=== PATIENT | female | born 1950 | race Caucasian/White ===

== ENCOUNTER 2016-10-01 15:14 | Inpatient (IN) | payer OTHER ==
[~2016-10-01] VITALS: Ht 157.5 cm; Wt 35.2 kg
[~2016-10-01 15:14] MED LIST: DIGO30TA PO; LAMO100T16 PO; LSN5 PO; LSX40 PO; METH10TA4 PO; MIRT45TA PO; OLAN1TAB13 PO; TPRSR/100 PO; VENL1CAP92 PO; WARF-280 PO
[2016-10-01] MEDS ORDERED: SODIUM CHLORIDE 0.9% 1000ML 1,000 ML IV ONE (15:42)
[2016-10-01] MEDS ORDERED: ONDANSETRON INJ 2 MG/ML 2 ML VIAL IV STA (15:42)
--- NOTE | 2016-10-01 15:49 | EMERGENCY ROOM VISIT NOTE ---
History Report prepared by Ruben: Ricardo Kennedy Under the Supervision of: Dr. Adrian Quesada M.D. First contact with patient: 15:35 Chief Complaint: WEAKNESS Stated Complaint: DEHYDRATION History of Present Illness The patient is a 66 year old female who presents to the Emergency Room via EMS with complaints of moderate weakness that began a couple of weeks ago. She is not in any pain. The patient states that her daughter suggested that she come into the ED today do to her persistent weakness. The patient states that she has had a couple falls with some mild injury, but nothing "too serious." She has been keeping up with her fluid intake, but she feels mildly dehydrated. She feels mildly nauseated.The patient denies any chest pain, shortness of breath, vomiting, diarrhea, and urinary symptoms. The patient's blood pressures have been low recently, and they are trying to correct it. The patient received 350 cc's of saline en route. The patient takes Coumadin and Digoxin regularly. She has a recent history of cardiogenic shock. Source of History: patient Onset: a couple of weeks ago Position: other (global) Symptom Intensity: moderate Quality: other (weakness) Timing: constant Associated Symptoms: + nausea, No SOB, No chest pain, No diarrhea, No urinary symptoms, No vomiting Review of Systems See HPI for pertinent positives & negatives. A total of 10 systems reviewed and were otherwise negative. Past Medical & Surgical Medical Problems: (1) Adjustment disorder with depressed mood (2) Anorexia nervosa (3) COPD (chronic obstructive pulmonary disease) (4) Digoxin toxicity (5) H/O H. pylori infection (6) HYPERTENSION NOS (7) Ischemic optic neuropathy of right eye (8) [place] toxicity (9) Mood disorder (10) Nonischemic cardiomyopathy (11) Orthostatic hypotension (12) Orthostatic hypotension (13) PTSD (post-traumatic stress disorder) (14) Sinus tachycardia Surgical Problems: (1) H/O breast implant (2) H/O esophagogastroduodenoscopy (3) H/O unilateral oophorectomy (4) S/P hip replacement Family History Asthma DAUGHTER Cancer FATHER (Prostate) Heart disease BROTHER SISTER Hypertension Kidney disease MOTHER Kidney stones MOTHER Lung disease Social History Smoking Status: Former Smoker Alcohol Use: none Drug Use: none Marital Status: Housing Status: lives alone Occupation Status: retired Current/Historical Medications Scheduled Digoxin (Digitek), 0.125 MG PO QAM Furosemide (Furosemide), 40 MG PO QAM Lamotrigine (Lamictal), 100 MG PO BID Lisinopril (Lisinopril), 5 MG PO QPM Melatonin (Ra Melatonin), 5 MG PO HS Methylphenidate (Ritalin), 10 MG PO DAILY Metoprolol Succinate (Metoprolol Succinate ER), 100 MG PO QAM Mirtazapine (Remeron), 45 MG PO HS Venlafaxine Hcl (Effexor Xr), 1 CAP PO DAILY Warfarin Sod (Jantoven), 2.5 MG PO QMON Warfarin Sodium (Warfarin Sodium), 1.25 MG PO 6XWK Scheduled PRN Docusate Sodium (Docusate Sodium), 100 MG PO BID PRN for Constipation Allergies Coded Allergies: Ciprofloxacin (Verified Allergy, Mild, RASH, 09/19/16) Penicillins (Verified Allergy, Unknown, RASH, 09/19/16) Prednisone (Verified Allergy, Unknown, UNSURE, 09/19/16) HAD FILLED O/P IN 2015 Statins (Verified Allergy, Unknown, ., 09/19/16) Codeine (Verified Adverse Reaction, Mild, 'OUT OF SORTS', 09/19/16) Physical Exam Vital Signs Date Time Temp Pulse Resp B/P Pulse Ox O2 Delivery O2 Flow Rate FiO2 10/01/16 17:36 82 16 76/46 10/01/16 17:26 82 16 75/62 97 10/01/16 15:33 95 Room Air 10/01/16 15:33 36.1 94 20 81/55 95 Room Air 10/01/16 15:28 90 Physical Exam GENERAL: Patient is in no acute distress. Thin and frail appearing. HEENT: No acute trauma, normocephalic atraumatic, mucous membranes are significantly dry, no nasal congestion, no scleral icterus. NECK: No stridor, no adenopathy, no meningismus, trachea is midline. LUNGS: Clear to auscultation bilaterally, no wheeze, no rhonchi, breath sounds equal. HEART: Without murmurs gallops or rubs, regular rate and rhythm. ABDOMEN: Soft, nontender, bowel sounds positive, no hernias, no peritonitis. EXTREMITIES: No cyanosis or edema, full range of motion of all the joints without pain or difficulty, no signs for acute trauma. NEUROLOGIC: Oriented x 3, no acute motor or sensory deficits, no focal weakness. SKIN: No rash, no jaundice, no diaphoresis. Medical Decision & Procedures ER Provider Diagnostic Interpretation: Radiology results are stated below per my review and radiologist interpretation: CHEST ONE VIEW PORTABLE HISTORY: Sepsis COMPARISON: Chest 09/19/2016. FINDINGS: The lungs are clear. Cardiac silhouette is normal in size. No pleural effusions. No pneumothorax. IMPRESSION: No acute process. Electronically signed by: Mario Alberto Kahn M.D. 10/01/2016 4:16 PM Laboratory Results 10/01/16 17:00 Red Blood Count 3.73, Mean Corpuscular Volume 90.6, Mean Corpuscular Hemoglobin 29.8, Mean Corpuscular Hemoglobin Concent 32.8, Mean Platelet Volume 10.3, Neutrophils (%) (Auto) 90.4, Lymphocytes (%) (Auto) 4.6, Monocytes (%) (Auto) 3.3, Eosinophils (%) (Auto) 0.0, Basophils (%) (Auto) 0.2, Neutrophils # (Auto) 18.37, Lymphocytes # (Auto) 0.94, Monocytes # (Auto) 0.67, Eosinophils # (Auto) 0.00, Basophils # (Auto) 0.04 10/01/16 17:00 Test 10/01/16 00:00 10/01/16 17:00 10/01/16 17:04 10/01/16 17:15 White Blood Count 20.33 K/uL (4.8-10.8) Red Blood Count 3.73 M/uL (4.2-5.4) Hemoglobin 11.1 g/dL (12.0-16.0) Hematocrit 33.8 % (37-47) Mean Corpuscular Volume 90.6 fL (80-100) Mean Corpuscular Hemoglobin 29.8 pg (25-34) Mean Corpuscular Hemoglobin Concent 32.8 g/dl (32-36) Platelet Count 349 K/uL (130-400) Mean Platelet Volume 10.3 fL (7.4-10.4) Neutrophils (%) (Auto) 90.4 % Lymphocytes (%) (Auto) 4.6 % Monocytes (%) (Auto) 3.3 % Eosinophils (%) (Auto) 0.0 % Basophils (%) (Auto) 0.2 % Neutrophils # (Auto) 18.37 K/uL (1.4-6.5) Lymphocytes # (Auto) 0.94 K/uL (1.2-3.4) Monocytes # (Auto) 0.67 K/uL (0.11-0.59) Eosinophils # (Auto) 0.00 K/uL (0-0.5) Basophils # (Auto) 0.04 K/uL (0-0.2) RDW Standard Deviation 55.9 fL (36.4-46.3) RDW Coefficient of Variation 16.9 % (11.5-14.5) Immature Granulocyte % (Auto) 1.5 % Immature Granulocyte # (Auto) 0.31 K/uL (0.00-0.02) Prothrombin Time > 100.0 SECONDS Prothromb Time International Ratio > 8.0 (0.9-1.1) Activated Partial Thromboplast Time 64.8 SECONDS (21.0-31.0) Partial Thromboplastin Ratio 2.5 Anion Gap 10.0 mmol/L (3-11) Est Creatinine Clear Calc Drug Dose 20.5 ml/min Estimated GFR () 28.1 Estimated GFR (Non- 24.3 BUN/Creatinine Ratio 27.4 (10-20) Calcium Level 8.0 mg/dl (8.5-10.1) Magnesium Level 2.4 mg/dl (1.8-2.4) Total Bilirubin 0.3 mg/dl (0.2-1) Aspartate Amino Transf (AST/SGOT) 23 U/L (15-37) Alanine Aminotransferase (ALT/SGPT) 14 U/L (12-78) Alkaline Phosphatase 138 U/L (45-117) Troponin I 0.148 ng/ml (0-0.045) Total Protein 6.3 gm/dl (6.4-8.2) Albumin 2.0 gm/dl (3.4-5.0) Globulin 4.3 gm/dl (2.5-4.0) Albumin/Globulin Ratio 0.5 (0.9-2) Thyroid Stimulating Hormone (TSH) 0.497 uIu/ml (0.300-4.500) Digoxin Level 1.6 ng/ml (0.8-2.0) Bedside Lactic Acid Venous 1.95 mmol/L (0.90-1.70) Urine Color YELLOW Urine Appearance TURBID (CLEAR) Urine pH 5.5 (4.5-7.5) Urine Specific [place] 1.012 (1.000-1.030) Urine Protein 2+ (NEG) Urine Glucose (UA) NEG (NEG) Urine Ketones NEG (NEG) Urine Occult Blood 3+ (NEG) Urine Nitrite NEG (NEG) Urine Bilirubin NEG (NEG) Urine Urobilinogen NEG (NEG) Urine Leukocyte Esterase LARGE (NEG) Urine WBC (Auto) >30 /hpf (0-5) Urine RBC (Auto) 10-30 /hpf (0-4) Urine Hyaline Casts (Auto) 1-5 /lpf (0-5) Urine Epithelial Cells (Auto) 5-10 /lpf (0-5) Urine Bacteria (Auto) 2+ (NEG) Test 10/01/16 18:21 Laboratory results reviewed by me. Medications Administered Medications (Trade) Dose Ordered Sig/[place] Route Start Time Stop Time Status Last Admin Dose Admin Sodium Chloride (Nss 1000ml) 1,000 ml @ 999 mls/hr Q1H1M ONCE IV 10/01/16 15:42 10/01/16 16:42 DC 10/01/16 16:15 999 MLS/HR Ondansetron HCl 4 mg 4 mg NOW STAT IV 10/01/16 15:42 10/01/16 15:46 DC 10/01/16 16:07 4 MG Sodium Chloride 500 ml @ 999 mls/hr Q31M STAT IV 10/01/16 17:34 10/01/16 18:04 DC 10/01/16 17:37 999 MLS/HR Aztreonam/Dextrose (Azactam IV/D5 100ml) 110 ml @ 100 mls/hr NOW STAT IV 10/01/16 17:34 10/01/16 18:39 DC 10/01/16 17:49 100 MLS/HR Potassium Chloride 10 meq 10 meq NOW STAT IV 10/01/16 17:54 10/01/16 17:55 DC 10/01/16 18:14 10 MEQ Sodium Chloride (Nss 500ml) 500 ml @ 999 mls/hr Q31M STAT IV 10/01/16 18:04 10/01/16 18:34 DC 10/01/16 18:14 999 MLS/HR ECG Indication: weakness Rate (beats per minute): 95 Rhythm: normal sinus Findings: RBBB, no ectopy, other (baseline artifact) Comparison ECG Date: 19 Sep 2016 Change: no significant change ED Course 1535: The patient was evaluated in room B11. A complete history and physical exam was performed. 1542: Zofran Inj 4 mg IV, Sodium Chloride 1000 ml @ 999 mls/hr IV 1734: Aztreonam 2000 mg/ Dextrose 110 ml @ 100 mls/hr IV, Sodium Chloride 500 ml @ 999 mls/hr IV 1754: Potassium Chloride 10 meq IV 1756: Upon reexamination the patient is resting comfortably. I discussed results and treatment plan with the patient. She verbalizes agreement and understanding. The patient will be evaluated by Dr. Arsen Rhodes Hospitalist, for further management. 1804: Sodium Chloride 500 ml @ 999 mls/hr IV Medical Decision Differential diagnosis includes but is not limited to dehydration, electrolyte imbalance, renal failure, liver failure, UTI, sepsis, anemia, myocardial infarction, and pneumonia. There is a significant leukocytosis at 20,000. No concerning anemia. Renal panel testing shows hypokalemia and acute renal failure. There was no hepatitis. Lactic acid level was not significantly elevated making severe sepsis less likely. Blood cultures are pending. Urinalysis does suggest infection, urine culture is pending. EKG shows a normal sinus rhythm with a right bundle branch block, no acute ischemia. Cardiac enzyme testing times one does show an elevation to the troponin consistent with recent cardiac injury/ strain. Chest x-ray shows no CHF, pneumonia or pneumothorax. INR is quite elevated at over 8. Luckily, the patient is not actively hemorrhaging. The patient was aggressively managed given her presentation. She received around 2 L of IV saline during her ER stay. Her pressure did start to improve, the last blood pressure I saw was in the 90s systolic. She received IV potassium, IV aztreonam, IV Zofran. The patient has 2 sites for IV access. She is awake, interactive. I was careful not to give to many fluids too fast as she reports a history of cardiogenic shock. She has tolerated what IV fluids were given in the ER without difficulty. Admission/observation is warranted. She has multiple findings that warrant a hospital stay. I do think she is technically septic. The source appears to be urinary. I did speak to the patient and case management. The on-call hospitalist was consulted. Consults Time Called: 1749 Consulting Physician: Dr. Arsen Rhodes Hospitalist Returned Call: [phone] They will evaluate the patient for further management. Impression Primary Impression: Sepsis Additional Impressions: Hypotension, UTI (urinary tract infection), Hypokalemia, Acute renal failure, Elevated troponin Critical Care I have personally spent greater than 30 minutes of critical care time in the direct management of this patient. This includes bedside care, interpretation of diagnostic studies, and testing, discussion with consultants, patient, and family members, and other required patient management activities. This 30 minutes is in excess of all separately billable procedures. Scribe Attestation The scribe's documentation has been prepared under my direction and personally reviewed by me in its entirety. I confirm that the note above accurately reflects all work, treatment, procedures, and medical decision making performed by me. Departure Information Dispostion Being Evaluated By Hospitalist Referrals Fabio Monte III, M.D. (PCP) Patient Instructions A Signature Page, My [facility]
[2016-10-01] MEDS ORDERED: MELA5TAB11 PO (16:01)
--- NOTE | 2016-10-01 16:18 | DIAGNOSTIC IMAGING REPORT ---
CHEST ONE VIEW PORTABLE HISTORY: Sepsis COMPARISON: Chest 09/19/2016. FINDINGS: The lungs are clear. Cardiac silhouette is normal in size. No pleural effusions. No pneumothorax. IMPRESSION: No acute process. Electronically signed by: Mario Alberto Kahn M.D. 10/01/2016 4:16 PM
[2016-10-01] MEDS ORDERED: WARF2.5T8 PO (16:33)
[2016-10-01 17:15] LABS: BASO % 0.2 %; BASO ABS # 0.04 K/uL (0-0.2); COMPLETE YES; HEMATOCRIT 33.8 % (37-47); IG% 1.5 %; LYMPH % 4.6 %; LYMPH ABS # 0.94 K/uL (1.2-3.4); MEAN CELL VOLUME 90.6 fL (80-100); MEAN CORPUSCULAR HEMOGLOBIN 29.8 pg (25-34); MEAN CORPUSCULAR HGB CONC 32.8 g/dl (32-36); MEAN PLATELET VOLUME 10.3 fL (7.4-10.4); MONO % 3.3 %; NEUT % 90.4 %; PLATELET COUNT 349 K/uL (130-400); RED BLOOD COUNT 3.73 M/uL (4.2-5.4); WHITE BLOOD COUNT 20.33 K/uL (4.8-10.8)
[2016-10-01] MEDS ORDERED: AZTREONAM IV 2,000 MG in DEXTROSE 5% 100ML 100 ML IV STA (17:34)
[2016-10-01] MEDS ORDERED: SODIUM CHLORIDE 0.9% 500ML 500 ML IV STA ×2 (17:34→18:04)
[2016-10-01 17:41] LABS: URINE APPEARANCE TURBID (CLEAR); URINE BILIRUBIN NEG (NEG); URINE COLOR YELLOW; URINE NITRITE NEG (NEG); URINE PH 5.5 (4.5-7.5); URINE SPECIFIC GRAVITY 1.012 (1.000-1.030); UROBILINOGEN NEG (NEG); ZZURINE CULT IF INDIC CATH YES
[2016-10-01 17:48] LABS: ALB/GLOB RATIO 0.5 (0.9-2); BUN/CREATININE RATIO 27.4 (10-20); CREATININE 2.1 mg/dl (0.60-1.20); MAGNESIUM 2.4 mg/dl (1.8-2.4); THYROID STIMULATING HORMONE 0.497 uIu/ml (0.300-4.500)
[2016-10-01 17:49] LABS: MANUAL MICROSCOPIC REQUIRED? NO; REVIEW REQ? NO
[2016-10-01 17:51] LABS: POTASSIUM 2.4 mmol/L (3.5-5.1)
[2016-10-01] MEDS ORDERED: POTASSIUM CHLORIDE 10 MEQ / 100ML WTR IV STA (17:54)
[2016-10-01 17:57] LABS: PARTIAL THROMBOPLASTIN RATIO 2.5; PROTHROMBIN TIME (PATIENT) > 100.0 SECONDS (9.0-12.0)
[2016-10-01 18:01] LABS: INR > 8.0 (0.9-1.1)
[2016-10-01] MEDS ORDERED: ONDANSETRON INJ 2 MG/ML 2 ML VIAL IV PRN (18:30)
[2016-10-01] MEDS ORDERED: POLYETHYLENE (MIRALAX) 17 GM PACK PO PRN (18:30)
[2016-10-01] MEDS ORDERED: AZTREONAM CONSULT ACTIVE PRN ×2 (18:37)
[2016-10-01] MEDS ORDERED: VANCOMYCIN INJ 1,000 MG in SODIUM CHLORIDE 0.9% 250ML 250 ML IV STA (18:40)
[2016-10-01] MEDS ORDERED: DOCUSATE SODIUM 100 MG CAP PO PRN (18:45)
[2016-10-01] MEDS ORDERED: DOCU100C31 PO (18:57)
[2016-10-01] MEDS ORDERED: ASPI1TAB83 PO (18:58)
[2016-10-01] MEDS ORDERED: PHYTONADIONE INJ 5 MG in SODIUM CHLORIDE 0.9% 50ML 50 ML IV ONE (19:00)
--- NOTE | 2016-10-01 19:04 | History and Physical ---
History & Physical Date & Time of Service: Oct 01, 2016 at 18:44 Chief Complaint: Dehydration Primary Care Physician: Fabio Monte III, M.D. History of Present Illness Source: patient, clinic records, hospital records Patient is a 66 yo female who presents to the hospital for complaints of dehydration and weakness. The patient was brought in by her daughter who has been routinely checking in on the patient and was concerned about the patients low BP and poor oral intake and appearance. The patient reports malaise, weakness, and chills/body aches that have been ongoing for weeks, however she reports the symptoms have worsened over the last 1 week. Her oral intake of liquids and food has been minimal. She reports that she has continued to take her regular home medications despite not eating or drinking well. She denies any vomiting or diarrhea. She complains of having a dry mouth and dry throat. She denies any cough, nasal congestion, JOYCE, CP or SOB. She does report dizziness made worse with sitting up or standing. She denies any urinary symptoms and states she has been urinating without difficulty. She was last seen by her PCP in mid-August for a follow up but did miss/ cancel her September appointment. She had a complicated admission in May that resulted in transfer from the ICU at [facility] to [facility] for Cardiogenic shock in the presence of possible infection. She underwent a cardiac cath at that time that showed small caliber but normal coronary arteries; and also underwent an iliac stent placement, femoral endarterectomy, and pericardial patch angioplasty after complication from an intraaortic balloon pump. Past Medical/Surgical History Medical Problems: (1) Adjustment disorder with depressed mood (2) Anorexia nervosa (3) COPD (chronic obstructive pulmonary disease) (4) Digoxin toxicity (5) H/O H. pylori infection (6) HYPERTENSION NOS (7) Ischemic optic neuropathy of right eye (8) [place] toxicity (9) Mood disorder (10) Nonischemic cardiomyopathy; idiopathic dilated cardiomyopathy (11) Orthostatic hypotension (12) PTSD (post-traumatic stress disorder) Surgical Problems: H/O breast implant EGD H/O unilateral oophorectomy S/P hip replacement R femoral endarterectomy with pericardial patch angioplasty Right iliac stent Cardiac Cath 05/2016 Family History Asthma DAUGHTER Cancer FATHER (Prostate) Heart disease BROTHER SISTER Hypertension Kidney disease MOTHER Kidney stones MOTHER Lung disease Social History Smoking Status: Former Smoker Drug Use: none Marital Status: Housing status: lives alone Occupational Status: retired Immunizations History of Influenza Vaccine: Yes Influenza Vaccine Date: Jul 20, 2013 History of Tetanus Vaccine?: Yes History of Pneumococcal: Yes Pneumococcal Date: Dec 20, 2013 History of Hepatitis B Vaccine: No Multi-Drug Resistant Organisms History of MDRO: No Allergies Coded Allergies: Ciprofloxacin (Verified Allergy, Mild, RASH, 09/19/16) Penicillins (Verified Allergy, Unknown, RASH, 09/19/16) Prednisone (Verified Allergy, Unknown, UNSURE, 09/19/16) HAD FILLED O/P IN 2015 Statins (Verified Allergy, Unknown, ., 09/19/16) Codeine (Verified Adverse Reaction, Mild, 'OUT OF SORTS', 09/19/16) Home Medications Scheduled Digoxin (Digitek), 0.125 MG PO QAM Furosemide (Furosemide), 40 MG PO QAM Lamotrigine (Lamictal), 100 MG PO BID Lisinopril (Lisinopril), 5 MG PO QPM Melatonin (Ra Melatonin), 5 MG PO HS Methylphenidate (Ritalin), 10 MG PO DAILY Metoprolol Succinate (Metoprolol Succinate ER), 100 MG PO QAM Mirtazapine (Remeron), 45 MG PO HS Venlafaxine Hcl (Effexor Xr), 1 CAP PO DAILY Warfarin Sod (Jantoven), 2.5 MG PO QMON Warfarin Sodium (Warfarin Sodium), 1.25 MG PO 6XWK Scheduled PRN Docusate Sodium (Docusate Sodium), 100 MG PO BID PRN for Constipation Review of Systems Constitutional: + chills, + fatigue, + sweats, + weakness Eyes: No diplopia, No problem reported ENT: + sore throat, No nasal symptoms, No problem reported, No trouble swallowing Respiratory: No cough, No dyspnea on exertion, No shortness of breath, No wheezing Cardiovascular: No chest pain, No claudication, No edema, No palpitations Abdomen: + nausea, No constipation, No diarrhea, No pain, No vomiting Musculoskeletal: + muscle pain, No calf pain, No swelling Genitourinary - Female: No dysuria, No hematuria, No urinary frequency, No urinary urgency Neurologic: + balance problems, + weakness, No numbness/tingling, No vertigo Psychiatric: No problem reported Endocrine: No problem reported Hematologic / Lymphatic: No problem reported Integumentary: No itch, No rash Physical Exam Vital Signs Date Time Temp Pulse Resp B/P Pulse Ox O2 Delivery O2 Flow Rate FiO2 10/01/16 17:36 82 16 76/46 10/01/16 17:26 82 16 75/62 97 10/01/16 15:33 95 Room Air 10/01/16 15:33 36.1 94 20 81/55 95 Room Air 10/01/16 15:28 90 General Appearance: + mild distress, + thin Head: normocephalic, atraumatic Eyes: PERRL, EOMI, sclerae normal ENT: hearing grossly normal, + pertinent finding (dry oral and buccal mucosa) Neck: supple, no JVD, no carotid bruits, trachea midline Respiratory/Chest: chest non-tender, lungs clear, no respiratory distress, no accessory muscle use, + decreased breath sounds Cardiovascular: regular rate, rhythm, no edema, no gallop, no JVD, + systolic murmur Abdomen/GI: normal bowel sounds, non tender, soft, no organomegaly Back: normal inspection, no CVA tenderness Extremities/Musculoskelatal: no calf tenderness, normal capillary refill, no pedal edema Neurologic/Psych: no motor/sensory deficits, alert, normal mood/affect, oriented x 3 Skin: normal color, warm/dry, no rash Diagnostics Laboratory Results Results Past 24 Hours Test 10/01/16 17:00 10/01/16 17:04 10/01/16 17:15 10/01/16 18:21 Range/Units White Blood Count 20.33 4.8-10.8 K/uL Red Blood Count 3.73 4.2-5.4 M/uL Hemoglobin 11.1 12.0-16.0 g/dL Hematocrit 33.8 37-47 % Mean Corpuscular Volume 90.6 80-100 fL Mean Corpuscular Hemoglobin 29.8 25-34 pg Mean Corpuscular Hemoglobin Concent 32.8 32-36 g/dl Platelet Count 349 130-400 K/uL Mean Platelet Volume 10.3 7.4-10.4 fL Neutrophils (%) (Auto) 90.4 % Lymphocytes (%) (Auto) 4.6 % Monocytes (%) (Auto) 3.3 % Eosinophils (%) (Auto) 0.0 % Basophils (%) (Auto) 0.2 % Neutrophils # (Auto) 18.37 1.4-6.5 K/uL Lymphocytes # (Auto) 0.94 1.2-3.4 K/uL Monocytes # (Auto) 0.67 0.11-0.59 K/uL Eosinophils # (Auto) 0.00 0-0.5 K/uL Basophils # (Auto) 0.04 0-0.2 K/uL RDW Standard Deviation 55.9 36.4-46.3 fL RDW Coefficient of Variation 16.9 11.5-14.5 % Immature Granulocyte % (Auto) 1.5 % Immature Granulocyte # (Auto) 0.31 0.00-0.02 K/uL Prothrombin Time > 100.0 9.0-12.0 SECONDS Prothromb Time International Ratio > 8.0 0.9-1.1 Activated Partial Thromboplast Time 64.8 21.0-31.0 SECONDS Partial Thromboplastin Ratio 2.5 Sodium Level 138 136-145 mmol/L Potassium Level 2.4 3.5-5.1 mmol/L Chloride Level 98 98-107 mmol/L Carbon Dioxide Level 30 21-32 mmol/L Anion Gap 10.0 3-11 mmol/L Blood Urea Nitrogen 58 7-18 mg/dl Creatinine 2.10 0.60-1.20 mg/dl Est Creatinine Clear Calc Drug Dose 20.5 ml/min Estimated GFR () 28.1 Estimated GFR (Non- 24.3 BUN/Creatinine Ratio 27.4 10-20 Random Glucose 135 70-99 mg/dl Calcium Level 8.0 8.5-10.1 mg/dl Magnesium Level 2.4 1.8-2.4 mg/dl Total Bilirubin 0.3 0.2-1 mg/dl Aspartate Amino Transf (AST/SGOT) 23 15-37 U/L Alanine Aminotransferase (ALT/SGPT) 14 12-78 U/L Alkaline Phosphatase 138 45-117 U/L Troponin I 0.148 0-0.045 ng/ml Total Protein 6.3 6.4-8.2 gm/dl Albumin 2.0 3.4-5.0 gm/dl Globulin 4.3 2.5-4.0 gm/dl Albumin/Globulin Ratio 0.5 0.9-2 Thyroid Stimulating Hormone (TSH) 0.497 0.300-4.500 uIu/ml Digoxin Level 1.6 0.8-2.0 ng/ml Bedside Lactic Acid Venous 1.95 0.90-1.70 mmol/L Urine Color YELLOW Urine Appearance TURBID CLEAR Urine pH 5.5 4.5-7.5 Urine Specific [place] 1.012 1.000-1.030 Urine Protein 2+ NEG Urine Glucose (UA) NEG NEG Urine Ketones NEG NEG Urine Occult Blood 3+ NEG Urine Nitrite NEG NEG Urine Bilirubin NEG NEG Urine Urobilinogen NEG NEG Urine Leukocyte Esterase LARGE NEG Urine WBC (Auto) >30 0-5 /hpf Urine RBC (Auto) 10-30 0-4 /hpf Urine Hyaline Casts (Auto) 1-5 0-5 /lpf Urine Epithelial Cells (Auto) 5-10 0-5 /lpf Urine Bacteria (Auto) 2+ NEG Microbiology Results 10/01/16 Blood Culture, Received Pending 10/01/16 Blood Culture, Received Pending 10/01/16 Urine Culture, Received Pending EKG RBBB, no change from prior EKG Impression Assessment and Plan POSSIBLE SEPSIS: FROM UTI -UA suggestive of UTI, urine culture is pending -blood cultures pending -lactic acid 1.9, recheck -hypotension, but must be very cautious with fluids given cardiac history -monitor in tele, but may require ICU if BP not responding to fluids or patient becomes fluid overloaded HYPOTENSION: SECONDARY TO HYPOVOLEMIA AND POSSIBLE SEPSIS -appears clinically hypovolemic -gentle IV fluids for limited doses due to known systolic CHF and recent cardiogenic shock -monitor closely -encourage PO intake of fluids as tolerated RANDOLPH ON CKD STAGE III: -likely prerenal related to dehydration -will hydrate and recheck labs -avoid nephrotoxins HYPOKALEMIA: -replete and recheck tonight BIPOLAR DISORDER -takes Zyprexa, Lamictal, Remeron, Ritalin -hold for now 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 -Last SHAVON in 05/2016 showed EF<20% with diffuse hypokinesis, severe MR, severe TR , moderate pulm HTN -was on BB, digoxin, lisinopril and lasix; all these medications held at this time due to hypotension COPD: -no symptoms to suggest exacerbation -prior hx of tobacco use -no home inhalers PRIOR DVT: -was on coumadin, dose increased at end of August -INR is 8.0< thus vitamin K given and coumadin held -monitor closely -no evidence of bleeding Hx of ANOREXIA NERVOSA Level of Care Telemetry Resuscitation Status FULL RESUSCITATION VTE Prophylaxis VTE Risk Assessment Done? Y/N: Yes Risk Level: Moderate Given or contraindicated: Treatment not indicated (Supratherapeutic INR)
[2016-10-01] MEDS ORDERED: VANCOMYCIN INJ 1,000 MG in SODIUM CHLORIDE 0.9% 250ML 250 ML IV ONE (19:15)
[2016-10-01] MEDS ORDERED: VANCOMYCIN CONSULT ACTIVE PRN (19:30)
[2016-10-01 20:00] VITALS: BP 77/54; TEMP 36.5; O2SAT 93; BMI 15.5
--- NOTE | 2016-10-01 20:19 | Pharmacy Progress Note ---
Pharmacy Antibiotic Consult Date of Service: Oct 01, 2016. Pharmacy Dosing Scope Pharmacy is consulted to initiate vancomycin IV dosing therapy, order appropriate labs and adjust drug dose/frequency. Subjective The patient is a 66 year old female admitted on Oct 01, 2016 at 18:28 for urinary source. Objective Height (Feet): 5 Height (Inches): 2.00 Weight (Kilograms): 48.000 Lab Results (24hrs): Laboratory Tests Test 10/01/16 17:00 BUN/Creatinine Ratio 27.4 Blood Urea Nitrogen 58 mg/dl Creatinine 2.10 mg/dl White Blood Count 20.33 K/uL Red Blood Count 3.73 M/uL Hemoglobin 11.1 g/dL Hematocrit 33.8 % Mean Corpuscular Volume 90.6 fL Mean Corpuscular Hemoglobin 29.8 pg Mean Corpuscular Hemoglobin Concent 32.8 g/dl Platelet Count 349 K/uL Mean Platelet Volume 10.3 fL Neutrophils (%) (Auto) 90.4 % Lymphocytes (%) (Auto) 4.6 % Monocytes (%) (Auto) 3.3 % Eosinophils (%) (Auto) 0.0 % Basophils (%) (Auto) 0.2 % Neutrophils # (Auto) 18.37 K/uL Lymphocytes # (Auto) 0.94 K/uL Monocytes # (Auto) 0.67 K/uL Eosinophils # (Auto) 0.00 K/uL Basophils # (Auto) 0.04 K/uL Assessment & Plan Loading dose: vancomycin 1000 mg (20 ml/hr) IV X 1 dose then: Random level drawn for tomorrow morning. patient's creatinine clearance is 20.5 ml/min with a creatinine of 2.1 mg/dL (baseline if 1 mg/dL) Azactam: dose reduced for creatinine clearance between 10-30 ml/min Pharmacy will continue to follow and will adjust dose/frequency as necessary. Thank you
[2016-10-01] MEDS ORDERED: HEPARIN SOD 5000 UNIT/0.5 ML CARP SQ SCH (21:00)
[2016-10-01] MEDS: NSS + 20MEQ KCL 1000ML 1,000 ML IV SCH (21:18)
[2016-10-01 22:30] LABS: INR 2.1 (0.9-1.1); PROTHROMBIN TIME (PATIENT) 22.9 SECONDS (9.0-12.0)
[2016-10-01 22:43] LABS: BUN/CREATININE RATIO 30.2 (10-20); CALCIUM 7.2 mg/dl (8.5-10.1); CREATININE 1.7 mg/dl (0.60-1.20); POTASSIUM 2.9 mmol/L (3.5-5.1)
[2016-10-01 23:38] VITALS: BP 98/62; PULSE 73; TEMP 36; O2SAT 100
[2016-10-02] MEDS ORDERED: POTASSIUM CHLORIDE 20 MEQ TABCR PO ONE (01:00)
[2016-10-02] MEDS: POTASSIUM CHLR 10 MEQ / WTR 10 MEQ in PREMIXED WATER 100 ML IV SCH ×2 (01:45→02:55)
[2016-10-02] MEDS: AZTREONAM IV 1,000 MG in DEXTROSE 5% 100ML 100 ML IV SCH ×3 (01:50→19:55)
[2016-10-02 04:18] VITALS: BP 106/68; PULSE 76; TEMP 36.5; O2SAT 100
[2016-10-02 07:02] LABS: HEMATOCRIT 34.6 % (37-47); MEAN CELL VOLUME 92.3 fL (80-100); MEAN CORPUSCULAR HEMOGLOBIN 30.1 pg (25-34); MEAN CORPUSCULAR HGB CONC 32.7 g/dl (32-36); MEAN PLATELET VOLUME 10.2 fL (7.4-10.4); PLATELET COUNT 411 K/uL (130-400); RED BLOOD COUNT 3.75 M/uL (4.2-5.4); WHITE BLOOD COUNT 16.77 K/uL (4.8-10.8)
[2016-10-02 07:08] LABS: INR 1.2 (0.9-1.1); PROTHROMBIN TIME (PATIENT) 12.7 SECONDS (9.0-12.0)
[2016-10-02 07:34] LABS: BUN/CREATININE RATIO 32.2 (10-20); CALCIUM 7.3 mg/dl (8.5-10.1); CREATININE 1.4 mg/dl (0.60-1.20); MAGNESIUM 2.3 mg/dl (1.8-2.4); POTASSIUM 3.2 mmol/L (3.5-5.1)
[2016-10-02 07:38] LABS: ALB/GLOB RATIO 0.4 (0.9-2)
[2016-10-02 07:41] VITALS: BP 78/53; PULSE 73; TEMP 36.5; O2SAT 100
[2016-10-02] MEDS ORDERED: POTASSIUM CHLORIDE 10 MEQ TABCR PO STA (07:42)
--- NOTE | 2016-10-02 07:58 | DIAGNOSTIC IMAGING REPORT ---
CHEST ONE VIEW PORTABLE CLINICAL HISTORY: Sepsis. Shortness of breath. COMPARISON STUDY: 10/01/2016 FINDINGS: The chest has an emphysematous configuration. The heart is borderline enlarged. There is no failure. There is no focal pulmonary consolidation. There are no pleural effusions.[ IMPRESSION: No active disease in the chest. Electronically signed by: Micheal Conteh M.D. 10/02/2016 7:56 AM
[2016-10-02] MEDS: VENLAFAXINE HCL XR 37.5 MG CAPXR PO SCH (08:16)
[2016-10-02 08:21] VITALS: BP 87/58
--- NOTE | 2016-10-02 10:58 | Pharmacy Progress Note ---
Pharmacy Antibiotic Prog Note Date of Service: Oct 02, 2016. Subjective: The patient is currently receiving Vanco/Aztreonam The patient is currently on day # 3 of Vanco/Zosyn IV therapy. Objective: Height (Feet): 5 Height (Inches): 2.00 Weight (Kilograms): 40.000 Levels: Item Value Date Time Random Vancomycin Level 16.3 mcg/ml 10/02/16 0636 Lab Results (24hrs): Laboratory Tests Test 10/01/16 17:00 10/01/16 21:40 10/02/16 06:36 BUN/Creatinine Ratio 27.4 30.2 32.2 Blood Urea Nitrogen 58 mg/dl 51 mg/dl 45 mg/dl Creatinine 2.10 mg/dl 1.70 mg/dl 1.40 mg/dl White Blood Count 20.33 K/uL 16.77 K/uL Red Blood Count 3.73 M/uL Hemoglobin 11.1 g/dL Hematocrit 33.8 % Mean Corpuscular Volume 90.6 fL Mean Corpuscular Hemoglobin 29.8 pg Mean Corpuscular Hemoglobin Concent 32.8 g/dl Platelet Count 349 K/uL Mean Platelet Volume 10.3 fL Neutrophils (%) (Auto) 90.4 % Lymphocytes (%) (Auto) 4.6 % Monocytes (%) (Auto) 3.3 % Eosinophils (%) (Auto) 0.0 % Basophils (%) (Auto) 0.2 % Neutrophils # (Auto) 18.37 K/uL Lymphocytes # (Auto) 0.94 K/uL Monocytes # (Auto) 0.67 K/uL Eosinophils # (Auto) 0.00 K/uL Basophils # (Auto) 0.04 K/uL Micro Results: Item Value Date Time Blood Culture Received 10/01/16 1700 Blood Pending Blood Culture Received 10/01/16 1610 Blood Pending Urine Culture - Preliminary Resulted 10/01/16 1715 Urine,Catheterized Gram Negative Bacilli Assessment & Plan: BC are pending, UC yield GNR's. Loading dose: Vanco 1000mg (20mg/kg) IV PRN due to poor renal fxn. Pt's population p'kinetics yield a t1/2 of 27 hrs. Random level drawn for tomorrow morning. patient's creatinine clearance is 24 cc /min with a creatinine of 1.4 mg/dL (baseline of 1 mg/dL) Azactam: dose appropriate due to poor renal fxn Pharmacy will continue to follow and will adjust dose/frequency as necessary. Thank you
[2016-10-02 11:23] VITALS: BP 84/53; PULSE 78; TEMP 36.4; O2SAT 100
[2016-10-02] MEDS ORDERED: VANCOMYCIN INJ 1,000 MG in SODIUM CHLORIDE 0.9% 250ML 250 ML IV ONE (13:00)
[2016-10-02 13:48] LABS: CALCIUM 7.8 mg/dl (8.5-10.1); CREATININE 1.3 mg/dl (0.60-1.20); POTASSIUM 3.4 mmol/L (3.5-5.1)
[2016-10-02] MEDS ORDERED: DIGOXIN 0.125 MG TAB PO SCH (16:00)
[2016-10-02 16:13] VITALS: BP 89/55; PULSE 80; TEMP 36.3; O2SAT 97
[2016-10-02 18:29] VITALS: BP 91/56; PULSE 81; TEMP 36.7; O2SAT 96
--- NOTE | 2016-10-02 19:44 | Progress Note ---
Medicine Progress Note Date & Time of Visit: Oct 02, 2016 at 19:40. Subjective Patient reports feeling extremely weak. She is slightly nauseated and wishes to stay on clear liquids. No overnight events noted. Denies any CP or SOB. No vomiting. Objective Last 8 Hrs Date Time Temp Pulse Resp B/P Pulse Ox O2 Delivery O2 Flow Rate FiO2 10/02/16 16:13 36.3 80 16 89/55 97 Room Air 10/02/16 16:00 Room Air 10/02/16 12:00 Room Air Physical Exam: GENERAL: Patient is in no acute distress. Appears cachectic HEENT: No acute trauma, normocephalic, no nasal congestion, no scleral icterus. NECK: No stridor, trachea is midline. LUNGS: Diminished bilaterally, no wheeze, no rhonchi, breath sounds equal. HEART: Without murmurs gallops or rubs, regular rate and rhythm. ABDOMEN: Soft, nontender, bowel sounds positive EXTREMITIES: No cyanosis or edema NEUROLOGIC: Oriented x 3, no acute motor or sensory deficits, no focal weakness. SKIN: No rash, no jaundice, no diaphoresis. Laboratory Results: Last 24 Hours Test 10/01/16 21:40 10/02/16 06:36 10/02/16 13:05 Prothrombin Time 22.9 SECONDS 12.7 SECONDS Prothromb Time International Ratio 2.1 1.2 Sodium Level 141 mmol/L 141 mmol/L 143 mmol/L Potassium Level 2.9 mmol/L 3.2 mmol/L 3.4 mmol/L Chloride Level 102 mmol/L 106 mmol/L 109 mmol/L Carbon Dioxide Level 29 mmol/L 24 mmol/L 25 mmol/L Anion Gap 10.0 mmol/L 11.0 mmol/L 9.0 mmol/L Blood Urea Nitrogen 51 mg/dl 45 mg/dl 40 mg/dl Creatinine 1.70 mg/dl 1.40 mg/dl 1.30 mg/dl Est Creatinine Clear Calc Drug Dose 20.3 ml/min 25.6 ml/min 27.6 ml/min Estimated GFR () 36.3 45.9 50.2 Estimated GFR (Non- 31.3 39.6 43.3 BUN/Creatinine Ratio 30.2 32.2 31.0 Random Glucose 94 mg/dl 82 mg/dl 145 mg/dl Calcium Level 7.2 mg/dl 7.3 mg/dl 7.8 mg/dl White Blood Count 16.77 K/uL Red Blood Count 3.75 M/uL Hemoglobin 11.3 g/dL Hematocrit 34.6 % Mean Corpuscular Volume 92.3 fL Mean Corpuscular Hemoglobin 30.1 pg Mean Corpuscular Hemoglobin Concent 32.7 g/dl RDW Standard Deviation 58.0 fL RDW Coefficient of Variation 17.4 % Platelet Count 411 K/uL Mean Platelet Volume 10.2 fL Magnesium Level 2.3 mg/dl Total Bilirubin 0.3 mg/dl Aspartate Amino Transf (AST/SGOT) 29 U/L Alanine Aminotransferase (ALT/SGPT) 11 U/L Alkaline Phosphatase 132 U/L Total Protein 5.9 gm/dl Albumin 1.8 gm/dl Globulin 4.1 gm/dl Albumin/Globulin Ratio 0.4 Random Vancomycin Level 16.3 mcg/ml Troponin I 0.061 ng/ml Assessment & Plan POSSIBLE SEPSIS: FROM UTI -UA suggestive of UTI, urine culture is growing gram neg bacilli -blood cultures pending, 1/2 bottles growing gram neg bacilli -lactic acid 1.9 -hypotension, but must be very cautious with fluids given cardiac history HYPOTENSION: SECONDARY TO HYPOVOLEMIA AND POSSIBLE SEPSIS -appears clinically hypovolemic -gentle IV fluids for limited doses due to known systolic CHF and recent cardiogenic shock -monitor closely RANDOLPH ON CKD STAGE III: -likely prerenal related to dehydration -improving with IV fluids -stop fluids for SOB or worsening CXR; will continue IV fluids until tomorrow HYPOKALEMIA: -repleted and recheck BIPOLAR DISORDER -takes Zyprexa, Lamictal, Remeron, Ritalin -hold for now 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 -Last SHAVON in 05/2016 showed EF<20% with diffuse hypokinesis, severe MR, severe TR , moderate pulm HTN -was on BB, digoxin, lisinopril and lasix; all these medications held at this time due to hypotension COPD: -no symptoms to suggest exacerbation -prior hx of tobacco use -no home inhalers PRIOR DVT: -was on coumadin, dose increased at end of August -INR is 8.0< thus vitamin K given and coumadin held; can resume coumadin now that INR is 1 -monitor closely -no evidence of bleeding Hx of ANOREXIA NERVOSA Current Inpatient Medications: Current Inpatient Medications Medications (Trade) Dose Ordered Sig/[place] Route Start Time Stop Time Status Last Admin Dose Admin Aztreonam 1 ea 1 ea UD PRN N/A 10/01/16 18:37 10/31/16 18:36 Aztreonam 1000 mg/ Dextrose 110 ml @ 100 mls/hr Q8H IV 10/02/16 02:00 10/11/16 23:59 10/02/16 10:00 100 MLS/HR Potassium Chloride/Sodium Chloride (Nss + 20meq KCl 1000ml) 1,000 ml @ 50 mls/hr Q20H IV 10/01/16 21:00 10/03/16 12:59 10/01/16 21:18 50 MLS/HR Acetaminophen (Tylenol Tab) 650 mg Q4H PRN PO 10/01/16 18:30 10/31/16 18:29 Ondansetron HCl (Zofran Inj) 4 mg Q6H PRN IV 10/01/16 18:30 10/31/16 18:29 Polyethylene (Miralax Powder Packet) 17 gm DAILY PRN PO 10/01/16 18:30 10/31/16 18:29 Docusate Sodium (coLACE CAP) 100 mg BID PRN PO 10/01/16 18:45 10/31/16 18:44 Lamotrigine (Lamictal Tab) 100 mg BID PO 10/01/16 21:00 10/31/16 20:59 10/02/16 08:14 100 MG Venlafaxine HCl (effeXOR EXTENDED REL CAP) 37.5 mg DAILY PO 10/02/16 09:00 11/01/16 08:59 10/02/16 08:16 37.5 MG Vancomycin HCl (Consult) 1 ea UD PRN N/A 10/01/16 19:30 10/31/16 19:29
[2016-10-02] MEDS: NSS + 20MEQ KCL 1000ML 1,000 ML IV SCH (19:55)
[2016-10-03] VITALS (8 sets, daily range): BP systolic 92–110; BP diastolic 55–69; PULSE 78–91; TEMP 36.3–36.7; O2SAT 93–98
[2016-10-03] MEDS: AZTREONAM IV 1,000 MG in DEXTROSE 5% 100ML 100 ML IV SCH (02:10)
[2016-10-03 05:00] LABS: HEMATOCRIT 27.8 % (37-47); MEAN CELL VOLUME 92.7 fL (80-100); MEAN CORPUSCULAR HGB CONC 32.4 g/dl (32-36); MEAN PLATELET VOLUME 9.7 fL (7.4-10.4); PLATELET COUNT 373 K/uL (130-400); WHITE BLOOD COUNT 10.45 K/uL (4.8-10.8)
[2016-10-03 05:07] LABS: INR 1.1 (0.9-1.1); PROTHROMBIN TIME (PATIENT) 11.5 SECONDS (9.0-12.0)
[2016-10-03 05:18] LABS: CALCIUM 7.6 mg/dl (8.5-10.1)
[2016-10-03 05:23] LABS: ALB/GLOB RATIO 0.5 (0.9-2); CREATININE 0.9 mg/dl (0.60-1.20); MAGNESIUM 1.9 mg/dl (1.8-2.4); POTASSIUM 3.2 mmol/L (3.5-5.1)
[2016-10-03] MEDS: VENLAFAXINE HCL XR 37.5 MG CAPXR PO SCH (08:24)
[2016-10-03] MEDS ORDERED: CEFTRIAXONE SOD INJ 1,000 MG in DEXTROSE 5% 50ML 50 ML IV ONE (12:17)
--- NOTE | 2016-10-03 13:56 | Pharmacy Progress Note ---
Pharmacy Antibiotic Prog Note Date of Service: Oct 03, 2016. Subjective: The patient is currently receiving Vanco PRN due to poor renal fxn. The patient is currently on day # 3 of Vanco IV therapy. Objective: Height (Feet): 5 Height (Inches): 2.00 Weight (Kilograms): 40.600 Levels: Item Value Date Time Random Vancomycin Level 16.3 mcg/ml 10/02/16 0636 Random Vancomycin Level 20.3 mcg/ml 10/03/16 0440 Lab Results (24hrs): Laboratory Tests Test 10/03/16 04:40 BUN/Creatinine Ratio 29.0 Blood Urea Nitrogen 26 mg/dl Creatinine 0.90 mg/dl White Blood Count 10.45 K/uL Micro Results: Item Value Date Time Blood Culture Received 10/03/16 1216 Blood Pending Blood Culture Received 10/03/16 1212 Blood Pending Urine Culture - Final Complete 10/01/16 1715 Urine,Catheterized Escherichia Coli Blood Culture - Preliminary Resulted 10/01/16 1700 Blood NO GROWTH TO DATE. Blood Culture - Preliminary Resulted 10/01/16 1610 Blood Gram Negative Bacilli RUN DATE: 10/03/16 [facility] PAGE 1 RUN TIME: 1113 Specimen Inquiry PATIENT: MEE MUKHERJEE LOC: [facility] U # : [id number] AGE/SX: 66/F ROOM: S239 REG : 10/01/[address]: Razia Redmond M.D. : 1950 BED: 2 DIS : STATUS: ADM IN TLOC: SPEC #: [id number] SAMANTHA: 10/01/16 STATUS: COMP REQ #: [id number] RECD: 10/01/[address]: Adrian Quesada M.D. SOURCE: URINE CATH ENTR: 10/01/[address]: Fabio Monte III, M.D. [facility]: ORDERED: CULTURE UR CATH Procedure Result Verified Site URINE CULTURE Final 10/03/16-3 Organism 1 ESCHERICHIA COLI COLONY COUNT >100,000 CFU/ml SENS SENSITIVITY TO FOLLOW Organism 2 ESCHERICHIA COLI#2 COLONY COUNT >100,000 CFU/ml SENS NO SENSITIVITY TO FOLLOW IDENTIFICATION AND SUSCEPTIBILITY TESTING HAVE CONFIRMED THE TWO ORGANISMS PREVIOUSLY REPORTED ARE THE SAME ORGANISM. NO SUSCEPTIBILITY RESULTS WILL BE GENERATED ON THE SECOND ISOLATE. 1. ESCHERICHIA COLI Target Route Dose RX AB Cost M.I.C. IQ ------ ----- ------ -- ------ -------- - ------ TRIMET/SULFA S <=2/38 AMPICILLIN S <=8 AMPICILLIN/SUL S <=8/4 CEFAZOLIN S <=8 CEFOTAXIME S <=2 CEFTRIAXONE S <=1 CEFEPIME S <=4 CEFUROXIME S <=4 IMIPENEM S <=1 AZTREONAM S <=4 GENTAMICIN S <=4 TOBRAMYCIN S <=4 AMIKACIN S <=16 CIPROFLOXACIN S <=1 LEVOFLOXACIN S <=2 ERTAPENEM S <=1 NITROFURANTOIN S <=32 PIP/TAZO S <=16 S = SENSITIVE I = INTERMEDIATE R = RESISTANT Assessment & Plan: Pt is a 66yoF receiving empiric Vanco and Aztreonam. UC yields llamas sens E.coli. Original BC yield GNRs in 1/2 cultures. Leukocytosis resolving. Pt is afebrile. Renal fxn looks to be improving. eCrCl is 40cc/min today. Updated pt population p'kinetic data: t1/2=18hrs. Repeat BC are pending. Vanco * This drug lvl is: therapeutic. * Will re-dose Vanco 750mg (15mg/kg) X1 dose. * Goal trough level estimate: between 15 - 20 mcg/mL. * Random level has been ordered for: . Rocephin: * 1g daily, appropriate for clinical picture Aztreonam: * D/C'd per Dr. Redmond Pharmacy will continue to follow and will adjust dose/frequency as necessary. Thank you
--- NOTE | 2016-10-03 13:59 | Progress Note ---
Internal Med Progress Note Date of Service: Oct 03, 2016. Provider Documentation: SUBJECTIVE: The patient was seen and examined very weak and lethargic Moderate SOB at rest Denies any pain OBJECTIVE: Vital Signs-as noted below Exam: General-Moderate distress at rest Eyes-Normal ENT-normal Neck-supple Lungs-Decreased breath sound bilaterally Occasional crackles at the bases Heart-Regular,no murmur Abdomen-Benign,no masses,bowel sound present Extremities-Trace edema bilaterally Neuro-AAO Generally very weak and lethargic Lab data as noted below. ASSESSMENT & PLAN: POSSIBLE SEPSIS:Increase WCC Tachycardia and Hypotension Secondary to UTI-E Cloi ,pansensitive Blood cultures pending, 1/2 bottles growing gram neg bacilli Lactic acid 1.9 Started on Aztreonam and Vancomycin Repeat Blood culture-pending D/C Aztreonam and start Ceftriaxone Continue Vancomycin for now HYPOTENSION: From dehydration -H/O CMP with EF<20% -gentle IV fluids for limited doses due to known systolic CHF and recent cardiogenic shock -monitor closely -BP is maintained without any sig SOB RANDOLPH ON CKD STAGE III: -likely prerenal related to dehydration -improving with IV fluids -Normalized now BIPOLAR DISORDER -takes Zyprexa, Lamictal, Remeron, Ritalin -will restart 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 -Last SHAVON in 05/2016 showed EF<20% with diffuse hypokinesis, severe MR, severe TR , moderate pulm HTN -was on BB, digoxin, lisinopril and Lasix; all these medications held at this time due to hypotension -will resatrt home medication gradually COPD: -no symptoms to suggest exacerbation -prior hx of tobacco use -no home inhalers PRIOR DVT: -was on Coumadin, dose increased at end of August -INR is 8.0< thus vitamin K given and Coumadin held; can resume Coumadin now that INR is 1 -will start Coumadin and Heparin today Hx of ANOREXIA NERVOSA PT /OT evaluation Vital Signs: Date Time Temp Pulse Resp B/P Pulse Ox O2 Delivery O2 Flow Rate FiO2 10/03/16 12:00 Room Air 10/03/16 11:54 36.3 87 16 107/69 97 Room Air 10/03/16 08:00 36.7 82 16 110/68 95 Room Air 10/03/16 08:00 Room Air 10/03/16 04:00 Room Air 10/03/16 03:33 36.7 82 19 98/65 93 Room Air 10/03/16 00:28 36.6 81 18 92/55 94 Room Air 10/03/16 00:15 Room Air 10/02/16 20:00 Room Air 10/02/16 18:29 36.7 81 18 91/56 96 Room Air 10/02/16 16:13 36.3 80 16 89/55 97 Room Air 10/02/16 16:00 Room Air Lab Results: Results Past 24 Hours Test 10/03/16 04:40 Range/Units White Blood Count 10.45 4.8-10.8 K/uL Red Blood Count 3.00 4.2-5.4 M/uL Hemoglobin 9.0 12.0-16.0 g/dL Hematocrit 27.8 37-47 % Mean Corpuscular Volume 92.7 80-100 fL Mean Corpuscular Hemoglobin 30.0 25-34 pg Mean Corpuscular Hemoglobin Concent 32.4 32-36 g/dl RDW Standard Deviation 59.3 36.4-46.3 fL RDW Coefficient of Variation 17.7 11.5-14.5 % Platelet Count 373 130-400 K/uL Mean Platelet Volume 9.7 7.4-10.4 fL Prothrombin Time 11.5 9.0-12.0 SECONDS Prothromb Time International Ratio 1.1 0.9-1.1 Sodium Level 144 136-145 mmol/L Potassium Level 3.2 3.5-5.1 mmol/L Chloride Level 110 98-107 mmol/L Carbon Dioxide Level 25 21-32 mmol/L Anion Gap 9.0 3-11 mmol/L Blood Urea Nitrogen 26 7-18 mg/dl Creatinine 0.90 0.60-1.20 mg/dl Est Creatinine Clear Calc Drug Dose 39.9 ml/min Estimated GFR () 78.3 Estimated GFR (Non- 67.6 BUN/Creatinine Ratio 29.0 10-20 Random Glucose 79 70-99 mg/dl Calcium Level 7.6 8.5-10.1 mg/dl Magnesium Level 1.9 1.8-2.4 mg/dl Total Bilirubin 0.2 0.2-1 mg/dl Aspartate Amino Transf (AST/SGOT) 17 15-37 U/L Alanine Aminotransferase (ALT/SGPT) 12 12-78 U/L Alkaline Phosphatase 108 45-117 U/L Total Protein 4.8 6.4-8.2 gm/dl Albumin 1.5 3.4-5.0 gm/dl Globulin 3.3 2.5-4.0 gm/dl Albumin/Globulin Ratio 0.5 0.9-2 Random Vancomycin Level 20.3 mcg/ml Microbiology Results 10/03/16 Blood Culture, Received Pending 10/03/16 Blood Culture, Received Pending
[2016-10-03] MEDS ORDERED: VANCOMYCIN INJ 750 MG in SODIUM CHLORIDE 0.9% 250ML 250 ML IV ONE (14:00)
[2016-10-03] MEDS: HEPARIN SOD 5000 UNIT/0.5 ML CARP SQ SCH ×2 (14:35→20:18)
[2016-10-03] MEDS: WARFARIN SOD 2.5 MG TAB PO SCH (17:17)
[2016-10-03] MEDS: METOPROLOL TARTRATE 25 MG TAB PO SCH (17:18)
[2016-10-04] VITALS (9 sets, daily range): BP systolic 111–147; BP diastolic 73–91; PULSE 89–120; TEMP 36.4–36.8; O2SAT 94–97
[2016-10-04] MEDS: HEPARIN SOD 5000 UNIT/0.5 ML CARP SQ SCH ×3 (05:10→20:30)
[2016-10-04 07:16] LABS: MEAN CELL VOLUME 91.5 fL (80-100); MEAN CORPUSCULAR HEMOGLOBIN 29.9 pg (25-34); MEAN CORPUSCULAR HGB CONC 32.7 g/dl (32-36); MEAN PLATELET VOLUME 9.5 fL (7.4-10.4); PLATELET COUNT 494 K/uL (130-400); RED BLOOD COUNT 3.28 M/uL (4.2-5.4)
[2016-10-04 07:23] LABS: INR 1.2 (0.9-1.1); PROTHROMBIN TIME (PATIENT) 12.6 SECONDS (9.0-12.0)
[2016-10-04 07:52] LABS: ALB/GLOB RATIO 0.5 (0.9-2); BUN/CREATININE RATIO 16.7 (10-20); CALCIUM 8.3 mg/dl (8.5-10.1); CREATININE 0.75 mg/dl (0.60-1.20); MAGNESIUM 1.7 mg/dl (1.8-2.4); POTASSIUM 3.1 mmol/L (3.5-5.1)
[2016-10-04] MEDS: METOPROLOL TARTRATE 25 MG TAB PO SCH ×2 (09:03→20:28)
[2016-10-04] MEDS: CEFTRIAXONE SOD INJ 1,000 MG in DEXTROSE 5% 50ML 50 ML IV SCH (09:04)
[2016-10-04] MEDS: VENLAFAXINE HCL XR 37.5 MG CAPXR PO SCH (09:04)
[2016-10-04] MEDS ORDERED: VANCOMYCIN INJ 1,000 MG in SODIUM CHLORIDE 0.9% 250ML 250 ML IV ONE (13:00)
--- NOTE | 2016-10-04 15:16 | Pharmacy Progress Note ---
Pharmacy Antibiotic Prog Note Date of Service: Oct 04, 2016. Subjective: The patient is currently receiving vancomycin and ceftriaxone for possible UTI The patient is currently on day # 4 of IV therapy with vancomycin; azactam switched to ceftriaxone 10/04 Objective: Height (Feet): 5 Height (Inches): 2.00 Weight (Kilograms): 39.700 Lab Results (24hrs): Laboratory Tests Test 10/04/16 06:50 BUN/Creatinine Ratio 16.7 Blood Urea Nitrogen 13 mg/dl Creatinine 0.75 mg/dl White Blood Count 9.30 K/uL Assessment & Plan: Patient is on vancomycin and ceftriaxone for possible UTI. Leukocytosis has resolved, patient afebrile. UC showing E coli with sensitivities pending. 10/09 BC GNR, repeat BC are pending at this time. Vancomycin: * Random level this am was ~15 mcg/ml (goal 15-20 mcg/ml) * Will dose with 1000 mg iv x 1 (decided with higher dose to ensure patient remains therapeutic until 12 am) * Scr appears to be improving more today, now 0.75 mg/dL (CrCl ~47 ml/min) * Repeat BC are pending, if negative could consider deescalating abx / discontinuing vancomycin * If vancomycin is to be continued would start a maintenance regimen Pharmacy will continue to follow and will adjust dose/frequency as necessary. Thank you
--- NOTE | 2016-10-04 17:33 | Progress Note ---
Internal Med Progress Note Date of Service: Oct 04, 2016. Provider Documentation: SUBJECTIVE: The patient was seen aand examined Remains very weak and lethargic Moderate SOB at rest Denies any pain OBJECTIVE: Vital Signs-as noted below Exam: General-Minimal distress at rest Eyes-Normal ENT-normal Neck-supple Lungs-Decreased breath sound bilaterally Occasional crackles at the bases Heart-Regular,no murmur Abdomen-Benign,no masses,bowel sound present Extremities-Trace edema bilaterally Neuro-AAO Generally very weak and lethargic Lab data as noted below. ASSESSMENT & PLAN: POSSIBLE SEPSIS:Increase WCC Tachycardia and Hypotension Secondary to UTI-E Cloi ,pansensitive Blood cultures pending, 1/2 bottles growing gram neg bacilli Lactic acid was 1.9 Started on Aztreonam and Vancomycin Repeat Blood culture-pending D/C Aztreonam and start Ceftriaxone Continue Vancomycin for now D/C vancomycin if Blood culture is negative HYPOTENSION: From dehydration -H/O CMP with EF<20% -gentle IV fluids for limited doses due to known systolic CHF and recent cardiogenic shock -monitor closely -BP is maintained without any sig SOB -seems stable RANDOLPH ON CKD STAGE III: -likely prerenal related to dehydration -improving with IV fluids -Normalized now BIPOLAR DISORDER -takes Zyprexa, Lamictal, Remeron, Ritalin -restarted on her home medication 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 -Last SHAVON in 05/2016 showed EF<20% with diffuse hypokinesis, severe MR, severe TR , moderate pulm HTN -was on BB, digoxin, lisinopril and Lasix; all these medications held at this time due to hypotension -will restart home medication gradually COPD: -no symptoms to suggest exacerbation -prior hx of tobacco use -no home inhalers PRIOR DVT: -was on Coumadin, dose increased at end of August -INR is 8.0< thus vitamin K given and Coumadin held; can resume Coumadin now that INR is 1 -will start Coumadin and Heparin today Hx of ANOREXIA NERVOSA PT /OT evaluation May need placement Vital Signs: Date Time Temp Pulse Resp B/P Pulse Ox O2 Delivery O2 Flow Rate FiO2 10/04/16 16:14 36.7 111 16 117/76 94 Room Air 10/04/16 16:00 Room Air 10/04/16 12:00 Room Air 10/04/16 11:44 36.8 89 18 129/84 97 Room Air 10/04/16 11:43 95 10/04/16 08:25 36.4 92 20 111/73 95 Room Air 10/04/16 08:00 Room Air 10/04/16 04:00 Room Air 10/04/16 03:27 36.8 99 18 128/78 95 Room Air 10/04/16 00:01 97 Room Air 10/03/16 23:22 36.5 80 16 108/69 97 Room Air 10/03/16 20:00 95 Room Air 10/03/16 19:57 36.7 78 16 101/66 95 Room Air Lab Results: Results Past 24 Hours Test 10/04/16 06:50 Range/Units White Blood Count 9.30 4.8-10.8 K/uL Red Blood Count 3.28 4.2-5.4 M/uL Hemoglobin 9.8 12.0-16.0 g/dL Hematocrit 30.0 37-47 % Mean Corpuscular Volume 91.5 80-100 fL Mean Corpuscular Hemoglobin 29.9 25-34 pg Mean Corpuscular Hemoglobin Concent 32.7 32-36 g/dl RDW Standard Deviation 57.0 36.4-46.3 fL RDW Coefficient of Variation 17.2 11.5-14.5 % Platelet Count 494 130-400 K/uL Mean Platelet Volume 9.5 7.4-10.4 fL Prothrombin Time 12.6 9.0-12.0 SECONDS Prothromb Time International Ratio 1.2 0.9-1.1 Sodium Level 146 136-145 mmol/L Potassium Level 3.1 3.5-5.1 mmol/L Chloride Level 110 98-107 mmol/L Carbon Dioxide Level 24 21-32 mmol/L Anion Gap 12.0 3-11 mmol/L Blood Urea Nitrogen 13 7-18 mg/dl Creatinine 0.75 0.60-1.20 mg/dl Est Creatinine Clear Calc Drug Dose 47.5 ml/min Estimated GFR () 97.6 Estimated GFR (Non- 84.2 BUN/Creatinine Ratio 16.7 10-20 Random Glucose 82 70-99 mg/dl Calcium Level 8.3 8.5-10.1 mg/dl Magnesium Level 1.7 1.8-2.4 mg/dl Total Bilirubin 0.4 0.2-1 mg/dl Aspartate Amino Transf (AST/SGOT) 21 15-37 U/L Alanine Aminotransferase (ALT/SGPT) 11 12-78 U/L Alkaline Phosphatase 124 45-117 U/L Total Protein 5.9 6.4-8.2 gm/dl Albumin 1.9 3.4-5.0 gm/dl Globulin 4.0 2.5-4.0 gm/dl Albumin/Globulin Ratio 0.5 0.9-2 Random Vancomycin Level 15.7 mcg/ml
[2016-10-04] MEDS: WARFARIN SOD 2.5 MG TAB PO SCH (20:37)
[2016-10-05] VITALS (9 sets, daily range): BP systolic 106–144; BP diastolic 71–90; PULSE 99–117; TEMP 36.8–37.2; O2SAT 90–96; Ht 157.5 cm; Wt 35.2 kg
[2016-10-05] MEDS: HEPARIN SOD 5000 UNIT/0.5 ML CARP SQ SCH ×3 (04:51→21:08)
[2016-10-05] MEDS: METOPROLOL TARTRATE 25 MG TAB PO SCH (04:51)
[2016-10-05] MEDS ORDERED: LORAZEPAM 2 MG/ML 1 ML VIAL IV PRN (05:00)
[2016-10-05 05:21] LABS: HEMATOCRIT 32.6 % (37-47); MEAN CELL VOLUME 90.6 fL (80-100); MEAN CORPUSCULAR HEMOGLOBIN 29.7 pg (25-34); MEAN CORPUSCULAR HGB CONC 32.8 g/dl (32-36); PLATELET COUNT 582 K/uL (130-400); WHITE BLOOD COUNT 11.49 K/uL (4.8-10.8)
[2016-10-05 05:28] LABS: INR 1.9 (0.9-1.1)
[2016-10-05 05:45] LABS: BASO % 0.5 %; BASO ABS # 0.06 K/uL (0-0.2); COMPLETE YES; EOS % 0.3 %; IG% 5.4 %; LYMPH % 10.8 %; LYMPH ABS # 1.24 K/uL (1.2-3.4); MONO % 6.8 %; NEUT % 76.2 %; POLYCHROMASIA 1+
[2016-10-05 06:13] LABS: BLOOD UREA NITROGEN 7 mg/dl (7-18); BUN/CREATININE RATIO 8.8 (10-20); CALCIUM 8.3 mg/dl (8.5-10.1); CARBON DIOXIDE 25 mmol/L (21-32); CHLORIDE 106 mmol/L (98-107); GLUCOSE 112 mg/dl (70-99); SODIUM 143 mmol/L (136-145)
[2016-10-05 06:56] LABS: POTASSIUM 2.8 mmol/L (3.5-5.1)
[2016-10-05 07:00] LABS: MAGNESIUM 1.6 mg/dl (1.8-2.4)
[2016-10-05] MEDS ORDERED: POTASSIUM CHLORIDE 20 MEQ TABCR PO STA (08:08)
[2016-10-05] MEDS: CEFTRIAXONE SOD INJ 1,000 MG in DEXTROSE 5% 50ML 50 ML IV SCH (08:19)
[2016-10-05] MEDS: VENLAFAXINE HCL XR 37.5 MG CAPXR PO SCH (08:20)
[2016-10-05] MEDS ORDERED: POTASSIUM CHLR 10 MEQ / WTR 10 MEQ in PREMIXED WATER 100 ML IV STA (08:23)
[2016-10-05] MEDS ORDERED: MAGNESIUM OXIDE 400 MG TAB PO SCH (09:00)
[2016-10-05] MEDS ORDERED: METOPROLOL SUCC 25MG EXT REL TAB PO ONE (13:47)
[2016-10-05] MEDS ORDERED: DIGOXIN 0.25 MG TAB PO ONE (14:15)
--- NOTE | 2016-10-05 14:34 | CARDIOLOGY CONSULTATION ---
DATE OF CONSULTATION: 10/05/2016 REFERRING PHYSICIAN: Dr. Redmond. INDICATIONS: Elevated heart rate. PRIMARY CARE PHYSICIAN: Dr. Monte. HISTORY OF PRESENT ILLNESS: The patient is a 66-year-old female whose history is notable for nonischemic cardiomyopathy with variable degree of LV dysfunction depending on clinical status. She has had difficulties with chronic sinus tachycardia requiring high dose beta-nick for control, her cardiomyopathy appears to be in association with severe anorexia nervosa, and compensation is dependent on degree of oral and p.o. intake and medical therapies. The patient referred now after admission on 10/01/2016 with weakness, fatigue and urinary sepsis with blood cultures and urine culture is growing E. coli. On initial presentation, the patient was hypotensive and medications were held. She has demonstrated clinical improvement, though now has worsening tachycardia. Discussed with the patient, she has been feeling poorly for some time. She had a complex hospitalization in May 2016 in association with possible infection, marked hypotension secondary to anorexia nervosa. Evaluation included cardiac catheterization without obstructive disease with complications of femoral artery injury secondary to intraaortic balloon pump inserted. The patient per review of records demonstrated improvement initially, but presents now noting gradual decline over the last month's time with poor p.o. intake, marked weight loss, now presenting with fever and febrile illness and urosepsis. She currently denies any complaints, chest pain, just feels weak, is once again having difficulty eating and drinking with poor p.o. intake even in the hospital. Medications on presentation as noted were held. ALLERGIES: CIPRO, CODEINE, PENICILLIN, PREDNISONE, STATINS. MEDICATIONS: Prior to hospitalization were per list, digoxin 0.125 mg p.o. daily, docusate 100 mg p.o. b.i.d., furosemide 40 mg every day, Lamictal 100 mg b.i.d., lisinopril 5 mg p.o. daily, melatonin 5 mg p.o. at bedtime, Ritalin 10 mg p.o. daily, metoprolol succinate 100 mg p.o. every day, Remeron 45 mg at bedtime, Effexor 37.5 mg daily, warfarin 2.5 mg Sunday, 1.25 mg all other days. PAST SURGICAL HISTORY: Notable for as described, repair of traumatic right femoral artery injury secondary intraaortic balloon pump inserted during acute hypotension in May. The patient at that time also received right iliac stenting. Has undergone prior breast augmentation. FAMILY HISTORY: Noncontributory. SOCIAL HISTORY: The patient is a nonsmoker, nondrinker. PHYSICAL EXAMINATION: GENERAL: The patient is a very thin, age appropriate female. VITAL SIGNS: Heart rate is 110-130, blood pressure is 128/86, O2 saturations 98% on room air. HEENT: Normocephalic, atraumatic. NECK: Thin. There is no distinct jugular venous distention. LUNGS: Reveal diminished breath sounds diffusely. CARDIOVASCULAR: Regular and tachycardic, forceful but enlarged apical impulse. ABDOMEN: Soft. EXTREMITIES: Without cyanosis or clubbing. There is no peripheral edema. IMPRESSION: A 66-year-old female with complex issues ongoing anorexia nervosa with significant depressive disorder, history of nonischemic cardiomyopathy felt to be possibly nutritional in etiology, obstructive lung disease. Hospitalization now with urosepsis. The patient has improved from an infectious standpoint, continues to manifest poor p.o. intake. She is now tachycardic. RECOMMENDATIONS: The patient requires high dose beta-blockers currently and has in the past. Metoprolol dose at home was 100 mg extended release, she is currently on 12.5 mg of metoprolol tartrate, will switch to metoprolol extended release at 25 mg q.i.d., first dose now. I agree with psychiatry referral. Would supplement potassium and magnesium, Brisk progressively increasing nutritional intake in this patient's necessity. EKG will be ordered now and reviewed. [facility]
[2016-10-05] MEDS: WARFARIN SOD 2.5 MG TAB PO SCH (16:23)
[2016-10-05] MEDS: METOPROLOL SUCC 25MG EXT REL TAB PO SCH ×2 (16:24→20:20)
--- NOTE | 2016-10-05 17:35 | Progress Note ---
Internal Med Progress Note Date of Service: Oct 05, 2016. Provider Documentation: SUBJECTIVE: The patient was seen and examined Moderate SOB at rest Denies any pain but very lethargic Lack of motivation Does not want to participate in PT/OT OBJECTIVE: Vital Signs-as noted below Exam: General-Minimal distress at rest Eyes-Normal ENT-normal Neck-supple Lungs-Decreased breath sound bilaterally Occasional crackles at the bases Heart-Regular,no murmur Abdomen-Benign,no masses,bowel sound present Extremities-Trace edema bilaterally Neuro-AAO Generally very weak and lethargic Lab data as noted below. ASSESSMENT & PLAN: POSSIBLE SEPSIS:Increase WCC Tachycardia and Hypotension Secondary to UTI-E Cloi ,pansensitive Blood cultures pending, 1/2 bottles growing gram neg bacilli Lactic acid was 1.9 Started on Aztreonam and Vancomycin Repeat Blood culture-pending D/C Aztreonam and start Ceftriaxone Continue Vancomycin for now D/C vancomycin-repeat Blood culture negative HYPOTENSION: From dehydration -H/O CMP with EF<20% -gentle IV fluids for limited doses due to known systolic CHF and recent cardiogenic shock -monitor closely -BP is maintained without any sig SOB -seems stable RANDOLPH ON CKD STAGE III: -likely prerenal related to dehydration -improving with IV fluids -Normalized now BIPOLAR DISORDER -takes Zyprexa, Lamictal, Remeron, Ritalin -restarted on her home medication -Psychiatry evaluation 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 -Last SHAVON in 05/2016 showed EF<20% with diffuse hypokinesis, severe MR, severe TR , moderate pulm HTN -was on BB, digoxin, lisinopril and Lasix; all these medications held at this time due to hypotension -Cardiomyopathy is due to malnutrition and gets better with nutritional support -Cardiology consult -BB dose have been increased and Digoxin added COPD: -no symptoms to suggest exacerbation -prior hx of tobacco use -no home inhalers PRIOR DVT: -was on Coumadin, dose increased at end of August -INR is 8.0< thus vitamin K given and Coumadin held; can resume Coumadin now that INR is 1 -will start Coumadin and Heparin today Hx of ANOREXIA NERVOSA Poor Nutrition Nutrition consult PT /OT evaluation May need placement Vital Signs: Date Time Temp Pulse Resp B/P Pulse Ox O2 Delivery O2 Flow Rate FiO2 10/05/16 16:03 37.2 104 16 137/90 91 Room Air 10/05/16 15:24 130 10/05/16 12:00 Room Air 10/05/16 11:36 37.0 116 18 128/86 90 Room Air 10/05/16 08:00 36.9 99 18 144/88 91 Room Air 10/05/16 08:00 Room Air 10/05/16 04:00 96 Room Air 10/05/16 03:25 36.8 117 22 127/81 96 Room Air 10/05/16 00:01 94 Room Air 10/04/16 23:20 36.8 113 22 147/91 94 Room Air 10/04/16 20:00 94 Room Air 10/04/16 19:38 36.5 120 18 132/83 94 Room Air Lab Results: Results Past 24 Hours Test 10/05/16 05:13 10/05/16 06:22 Range/Units White Blood Count 11.49 4.8-10.8 K/uL Red Blood Count 3.60 4.2-5.4 M/uL Hemoglobin 10.7 12.0-16.0 g/dL Hematocrit 32.6 37-47 % Mean Corpuscular Volume 90.6 80-100 fL Mean Corpuscular Hemoglobin 29.7 25-34 pg Mean Corpuscular Hemoglobin Concent 32.8 32-36 g/dl Platelet Count 582 130-400 K/uL Mean Platelet Volume 9.0 7.4-10.4 fL Neutrophils (%) (Auto) 76.2 % Lymphocytes (%) (Auto) 10.8 % Monocytes (%) (Auto) 6.8 % Eosinophils (%) (Auto) 0.3 % Basophils (%) (Auto) 0.5 % Neutrophils # (Auto) 8.76 1.4-6.5 K/uL Lymphocytes # (Auto) 1.24 1.2-3.4 K/uL Monocytes # (Auto) 0.78 0.11-0.59 K/uL Eosinophils # (Auto) 0.03 0-0.5 K/uL Basophils # (Auto) 0.06 0-0.2 K/uL RDW Standard Deviation 56.9 36.4-46.3 fL RDW Coefficient of Variation 17.1 11.5-14.5 % Immature Granulocyte % (Auto) 5.4 % Immature Granulocyte # (Auto) 0.62 0.00-0.02 K/uL Nucleated RBC Absolute Count (auto) 0.02 0-0 K/uL Nucleated Red Blood Cells % 0.2 % Polychromasia 1+ Prothrombin Time 21.0 9.0-12.0 SECONDS Prothromb Time International Ratio 1.9 0.9-1.1 Sodium Level 143 136-145 mmol/L Potassium Level 2.8 3.5-5.1 mmol/L Chloride Level 106 98-107 mmol/L Carbon Dioxide Level 25 21-32 mmol/L Anion Gap 12.0 3-11 mmol/L Blood Urea Nitrogen 7 7-18 mg/dl Creatinine 0.80 0.60-1.20 mg/dl Est Creatinine Clear Calc Drug Dose 73.1 ml/min Estimated GFR () 90.3 Estimated GFR (Non- 77.9 BUN/Creatinine Ratio 8.8 10-20 Random Glucose 112 70-99 mg/dl Calcium Level 8.3 8.5-10.1 mg/dl Magnesium Level 1.6 1.8-2.4 mg/dl Microbiology Results 10/05/16 C.difficile Toxin B Gene (PCR) - Final, Complete No C. difficile toxin B gene detected
[2016-10-05] MEDS ORDERED: MAGNESIUM SULFATE 1GM / D5W 1 GM in PREMIXED IN D5W 100 ML IV SCH (17:45)
[2016-10-05] MEDS ORDERED: ONDANSETRON 4MG OD TAB PO PRN (22:00)
[2016-10-05] MEDS ORDERED: LOPERAMIDE HCL 2 MG CAP PO PRN (22:00)
[2016-10-05] MEDS ORDERED: LEVALBUTEROL/IPRATROPIUM NEB INH STA (23:18)
[2016-10-05] MEDS ORDERED: LEVALBUTEROL/IPRATROPIUM NEB INH PRN (23:30)
[2016-10-05] MEDS ORDERED: IPRATROPIUM BROMIDE NEB SOLN 0.02% 2.5 ML VIAL INH STA (23:32)
[2016-10-05] MEDS ORDERED: LEVALBUTEROL 1.25MG/0.5ML NEB INH STA (23:32)
[2016-10-06] VITALS (13 sets, daily range): BP systolic 93–109; BP diastolic 61–72; PULSE 74–111; TEMP 36.4–37; O2SAT 90–98
[2016-10-06 00:09] LABS: ARTERIAL BLD GAS O2 SATURATION 95.1 % (90-95); ARTERIAL BLOOD GAS BASE EXCESS 5.1 mEq/L (-9-1.8); ARTERIAL BLOOD GAS HCO3 30 mmol/L (19-24); ARTERIAL BLOOD GAS PO2 80 mm/Hg (80-95); ARTERIAL BLOOD GAS pH 7.44 (7.35-7.45)
[2016-10-06 00:10] LABS: ALLEN TEST POS (POS); O2 ADMINISTRATION 1.5L
[2016-10-06 00:24] LABS: BUN/CREATININE RATIO 5.3 (10-20); CALCIUM 7.9 mg/dl (8.5-10.1); CREATININE 0.82 mg/dl (0.60-1.20); MAGNESIUM 2.4 mg/dl (1.8-2.4); POTASSIUM 3.1 mmol/L (3.5-5.1)
[2016-10-06] MEDS ORDERED: POTASSIUM CHLORIDE 10 MEQ TABCR PO STA (00:28)
[2016-10-06 00:31] LABS: INR 3.8 (0.9-1.1); PROTHROMBIN TIME (PATIENT) 43.2 SECONDS (9.0-12.0)
[2016-10-06] MEDS ORDERED: GUAIFENESIN 600 MG TABCR PO ONE (01:37)
[2016-10-06] MEDS ORDERED: METHYLPREDNISOLONE IV 20 MG in SYRINGE 0 ML IV STA (01:37)
--- NOTE | 2016-10-06 01:37 | Progress Note ---
Internal Med Progress Note Date of Service: Oct 06, 2016. Provider Documentation: Made aware by RN of some resp distress around 11 PM last night mild hypoxemia Px co of new cough sx, unable to expectorate. no cp, some sob as per px px admits to some coughing w/ meals/ water CXR emphysema, no infiltrate AP Bronchitis hx COPD as per records ro aspiration nebs prn solumedrol 1 dose now swallow eval bonita relay to AM provider. Vital Signs: Date Time Temp Pulse Resp B/P Pulse Ox O2 Delivery O2 Flow Rate FiO2 10/06/16 07:35 36.9 74 20 93/61 90 Room Air Diffusion Mask 10/06/16 04:00 Nasal Cannula 2.0 10/06/16 03:39 37.0 96 18 96/66 98 Nasal Cannula 2.0 10/06/16 00:11 111 18 95 Nasal Cannula 2.0 10/06/16 00:01 Nasal Cannula 2.0 10/05/16 23:01 36.8 104 20 107/71 90 Room Air 10/05/16 20:00 91 Room Air 10/05/16 19:44 36.8 116 16 106/73 91 Room Air 10/05/16 16:03 37.2 104 16 137/90 91 Room Air 10/05/16 16:00 Room Air 10/05/16 15:24 130 10/05/16 12:00 Room Air 10/05/16 11:36 37.0 116 18 128/86 90 Room Air Lab Results: Results Past 24 Hours Test 10/05/16 23:35 10/05/16 23:58 10/06/16 00:08 10/06/16 06:24 Range/Units Sodium Level 145 145 136-145 mmol/L Potassium Level 3.1 3.9 3.5-5.1 mmol/L Chloride Level 107 108 98-107 mmol/L Carbon Dioxide Level 26 31 21-32 mmol/L Anion Gap 12.0 6.0 3-11 mmol/L Blood Urea Nitrogen 4 4 7-18 mg/dl Creatinine 0.82 0.80 0.60-1.20 mg/dl Est Creatinine Clear Calc Drug Dose 43.5 44.3 ml/min Estimated GFR () 87.6 90.3 Estimated GFR (Non- 75.6 77.9 BUN/Creatinine Ratio 5.3 4.6 10-20 Random Glucose 133 118 70-99 mg/dl Calcium Level 7.9 7.9 8.5-10.1 mg/dl Magnesium Level 2.4 1.8-2.4 mg/dl Chemistry Specimen Hemolysis Arterial Blood pH 7.44 7.35-7.45 Arterial Blood Partial Pressure CO2 44 35-46 mmHg Arterial Blood Partial Pressure O2 80 80-95 mm/Hg Arterial Blood HCO3 30 19-24 mmol/L Arterial Blood Oxygen Saturation 95.1 90-95 % Arterial Blood Base Excess 5.1 -9-1.8 mEq/L Arterial Blood Gas Delivery 1.5L Kaiden Test POS POS Lactic Acid Level 1.4 0.4-2.0 mmol/L Prothrombin Time 43.2 9.0-12.0 SECONDS Prothromb Time International Ratio 3.8 0.9-1.1 Phosphorus Level 1.9 2.5-4.9 mg/dl 25-Hydroxy Vitamin D Total 12.0 30-100 ng/ml Microbiology Results 10/05/16 Blood Culture, Received Pending 10/05/16 Blood Culture, Received Pending 10/05/16 C.difficile Toxin B Gene (PCR) - Final, Complete No C. difficile toxin B gene detected
[2016-10-06] MEDS: HEPARIN SOD 5000 UNIT/0.5 ML CARP SQ SCH ×2 (06:00→13:04)
--- NOTE | 2016-10-06 06:41 | DIAGNOSTIC IMAGING REPORT ---
CHEST ONE VIEW PORTABLE CLINICAL HISTORY: low o2 hypoxia COMPARISON STUDY: 10/02/2016 FINDINGS: Mild emphysematous change. Slight prominence of the interstitium on a chronic basis. No focal infiltrates. IMPRESSION: Chronic change. Mild emphysematous change. Electronically signed by: Guero Devries M.D. 10/06/2016 6:40 AM
[2016-10-06 07:18] LABS: CREATININE 0.8 mg/dl (0.60-1.20)
[2016-10-06 07:19] LABS: BUN/CREATININE RATIO 4.6 (10-20); CALCIUM 7.9 mg/dl (8.5-10.1); PHOSPHORUS 1.9 mg/dl (2.5-4.9); POTASSIUM 3.9 mmol/L (3.5-5.1)
[2016-10-06] MEDS: METOPROLOL SUCC 25MG EXT REL TAB PO SCH ×2 (07:58→13:03)
[2016-10-06] MEDS: VENLAFAXINE HCL XR 37.5 MG CAPXR PO SCH (07:58)
[2016-10-06] MEDS: CEFTRIAXONE SOD INJ 1,000 MG in DEXTROSE 5% 50ML 50 ML IV SCH (08:03)
[2016-10-06] MEDS ORDERED: POTASSIUM PHOS 3 MMOL/1 ML INFUSION IV STA (09:26)
[2016-10-06] MEDS: ERGOCALCIFEROL 50,000 INTER.UNIT CAP PO SCH (09:45)
[2016-10-06] MEDS ORDERED: POTASSIUM PHOSPHATE INJ 21 MMOL in SODIUM CHLORIDE 0.9% 500ML 500 ML IV SCH (10:00)
--- NOTE | 2016-10-06 12:02 | Psychiatric Consultation ---
Consultation Identifying Data Sloane is a 65 yo female with a history of depression and ED who was last seen on consultation by Dr. Luevano in August 2015. She currently lives alone. Her daughter (who resides in [facility]) was present and also provided history with patient permission. Consult request is by Dr. Redmond. Chief Complaint "I'm sick of being sick". History of Present Illness Sloane had a complex medical admission in May for cardiogenic shock/required intubation and cardiac procedures after which she went to a rehab placements/ assisted care. She and her daughter report that she did well there but since returning home/being on her own she has experienced gradual decline. She has been more "down" meaning fatigued from her medical issues and feels overmedicated. She has lost maybe 10 lbs and little hunger. Today c/o some issues with swallow, cough/voice and was seen by speech. She denies crying and "never" has any suicidal thoughts. Her daughter feels that many of her issues are chronic and simply can't live alone anymore. She is in from [facility] to help her pay down some of her bills and arrange for some time of assisted living arrangement. She worries her mother will not accept as has refused [facility] previously, etc. Daughter confirms that "good about taking her medications" and keeping appointments with Dr. Luke. 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 pylori infection (10) Nonischemic cardiomyopathy (11) S/P hip replacement (12) H/O esophagogastroduodenoscopy (13) H/O breast implant Allergies Allergies: Coded Allergies: Ciprofloxacin (Verified Allergy, Mild, RASH, 09/19/16) Penicillins (Verified Allergy, Unknown, RASH, 09/19/16) Prednisone (Verified Allergy, Unknown, UNSURE, 09/19/16) HAD FILLED O/P IN 2016 Statins (Verified Allergy, Unknown, ., 09/19/16) Codeine (Verified Adverse Reaction, Mild, 'OUT OF SORTS', 09/19/16) Home Medications Scheduled Digoxin (Digitek), 0.125 MG PO QAM Furosemide (Furosemide), 40 MG PO QAM Lamotrigine (Lamictal), 100 MG PO BID Lisinopril (Lisinopril), 5 MG PO QPM Melatonin (Ra Melatonin), 5 MG PO HS Methylphenidate (Ritalin), 10 MG PO DAILY Metoprolol Succinate (Metoprolol Succinate ER), 100 MG PO QAM Mirtazapine (Remeron), 45 MG PO HS Venlafaxine Hcl (Effexor Xr), 1 CAP PO DAILY Warfarin Sod (Jantoven), 2.5 MG PO QMON Warfarin Sodium (Warfarin Sodium), 1.25 MG PO [id number] Scheduled PRN Docusate Sodium (Docusate Sodium), 100 MG PO BID PRN for Constipation Family History Asthma DAUGHTER Cancer FATHER (Prostate) Heart disease BROTHER SISTER Hypertension Kidney disease MOTHER Kidney stones MOTHER Lung disease mother and younger sister with bipolar disorder, 2 sisters with bulimia Alcohol Use Alcohol Use In Past 12 Months: No Substance History denied. Personal History Development: 4 sibs (3 sisters, 1 brother) Education: graduated college (bachelors in [employer] literature) Work History: SSI from first Relationship History: Children: 1 daughter--36 yo Legal History: none Abuse History: none Review of Systems Psych: denies symptoms other than stated above Constitutional: fatigue, throat discomfort Cardiovascular: denied GI: denied Neurologic: denied Remainder of 10 body systems also reviewed and denied other than noted above. Examination Vital Signs Vital Signs Past 12 Hours Date Time Temp Pulse Resp B/P Pulse Ox O2 Delivery O2 Flow Rate FiO2 10/06/16 11:38 36.8 76 18 106/70 93 Room Air 10/06/16 08:01 92 Room Air Diffusion Mask 10/06/16 07:35 36.9 74 20 93/61 90 Room Air Diffusion Mask 10/06/16 04:00 Nasal Cannula 2.0 10/06/16 03:39 37.0 96 18 96/66 98 Nasal Cannula 2.0 10/06/16 00:11 111 18 95 Nasal Cannula 2.0 10/06/16 00:01 Nasal Cannula 2.0 Laboratory Results Last 24 Hours Test 10/05/16 23:35 10/05/16 23:58 10/06/16 00:08 10/06/16 06:24 Sodium Level 145 mmol/L 145 mmol/L Potassium Level 3.1 mmol/L 3.9 mmol/L Chloride Level 107 mmol/L 108 mmol/L Carbon Dioxide Level 26 mmol/L 31 mmol/L Anion Gap 12.0 mmol/L 6.0 mmol/L Blood Urea Nitrogen 4 mg/dl 4 mg/dl Creatinine 0.82 mg/dl 0.80 mg/dl Est Creatinine Clear Calc Drug Dose 43.5 ml/min 44.3 ml/min Estimated GFR () 87.6 90.3 Estimated GFR (Non- 75.6 77.9 BUN/Creatinine Ratio 5.3 4.6 Random Glucose 133 mg/dl 118 mg/dl Calcium Level 7.9 mg/dl 7.9 mg/dl Magnesium Level 2.4 mg/dl Chemistry Specimen Hemolysis Arterial Blood pH 7.44 Arterial Blood Partial Pressure CO2 44 mmHg Arterial Blood Partial Pressure O2 80 mm/Hg Arterial Blood HCO3 30 mmol/L Arterial Blood Oxygen Saturation 95.1 % Arterial Blood Base Excess 5.1 mEq/L Arterial Blood Gas Delivery 1.5L Kaiden Test POS Lactic Acid Level 1.4 mmol/L Prothrombin Time 43.2 SECONDS Prothromb Time International Ratio 3.8 Phosphorus Level 1.9 mg/dl 25-Hydroxy Vitamin D Total 12.0 ng/ml Mental Examination During interview pt is: alert and oriented Appearance: appropriately groomed Eye contact is: fair Motor behavior is: no abnormal motor movements Speech: other (soft) Affect: blunted Mood is: anxious Thought process: clear, coherent Thought content: reality based without delusions Suicidal thought are: denied Homicidal thoughts are: denied Hallucinations: denies auditory, denies visual Cognition: memory grossly intact, attention grossly intact, language grossly intact Intelligence estimated to be: consistent with level of education Insight: limited Judgement: limited Impression / Recommendations Impression 66 yo female with history of recurrent major depressive disorder and anorexia presents with FTT at home following major cardiac event this summer with step down from care facility. Risk Factors Assessment Access to guns: No Recommendations liaison to update Dr. Luke's office and confirm f/u appts no indication for inpatient psychiatric hospitalization, should resume outpatient therapy but would depend ultimately on placement Ritalin currently held, would advise against use given hx of ED and low po intake currently patient states feels less sedated with Remeron being held continue low dose Effexor XR daughter plans to speak with mother about not returning home/living alone, liaison to provide additional support if patient upset following conversation
[2016-10-06] MEDS: LEVALBUTEROL 1.25MG/0.5ML NEB INH PRN ×2 (13:33→23:33)
[2016-10-06] MEDS: IPRATROPIUM BROMIDE NEB SOLN 0.02% 2.5 ML VIAL INH PRN ×2 (13:33→23:33)
--- NOTE | 2016-10-06 14:25 | CARDIOLOGY PROGRESS NOTE ---
DATE: 10/06/2016 The patient seen and examined. Chart, medications, telemetry reviewed. SUBJECTIVE: The patient feels improved today. Heart rates are much improved. No further tachyarrhythmias with rhythm sinus and sinus tachycardia since returned to prehospitalization medications. PHYSICAL EXAMINATION: VITAL SIGNS: Heart rate is 86. Blood pressure is 106/70. HEENT: Normocephalic, atraumatic. NECK: Thin. There is no jugular venous distention. LUNGS: There are scattered wheezes bilaterally. CARDIOVASCULAR: Regular. There is no S3 gallop. ABDOMEN: Soft, nontender. EXTREMITIES: Without cyanosis or clubbing. There is no peripheral edema. LABORATORY STUDIES: Sodium is 145, potassium is 3.9, chloride is 108, bicarbonate is 31, BUN is 4, creatinine is 0.8, and calcium levels 7.9. IMPRESSION AND PLAN: A 66-year-old female with complex underlying history as described multiple psychiatric issues and anorexia nervosa was admitted with urosepsis and gradually recovering. Exam today does suggest moderate wheezing. We would continue metoprolol dosing at current dosing though we will simplify regimen and Toprol-XL 50 mg twice per day for heart rate control. The patient may benefit from bronchoscopy dilator for evaluation of chronic complaints of hoarseness and throat issues.
--- NOTE | 2016-10-06 16:14 | Progress Note ---
Internal Med Progress Note Date of Service: Oct 06, 2016. Provider Documentation: SUBJECTIVE: The patient was seen and examined Moderate SOB at rest Denies any pain but very lethargic Lack of motivation Does not want to participate in PT/OT Much better today Denies any symptoms to me OBJECTIVE: Vital Signs-as noted below Exam: General-Minimal distress at rest Poor build-secondary to malnutrition Eyes-Normal ENT-normal Neck-supple Lungs-Decreased breath sound bilaterally Occasional crackles at the bases Heart-Regular,no murmur Abdomen-Benign,no masses,bowel sound present Extremities-Trace edema bilaterally Neuro-AAO Generally very weak and lethargic Lab data as noted below. ASSESSMENT & PLAN: POSSIBLE SEPSIS:Increase WCC Tachycardia and Hypotension Secondary to UTI-E Cloi ,pansensitive Blood cultures pending, 1/2 bottles growing gram neg bacilli Lactic acid was 1.9 Started on Aztreonam and Vancomycin Repeat Blood culture-pending D/C Aztreonam and start Ceftriaxone Continue Vancomycin for now D/C vancomycin-repeat Blood culture negative No more fever HYPOTENSION: From dehydration -H/O CMP with EF<20% -gentle IV fluids for limited doses due to known systolic CHF and recent cardiogenic shock -BP is maintained without any sig SOB -seems stable RANDOLPH ON CKD STAGE III: -likely prerenal related to dehydration -improving with IV fluids -Normalized now BIPOLAR DISORDER -takes Zyprexa, Lamictal, Remeron, Ritalin -restarted on her home medication -Psychiatry evaluation-appreciate input -No new medication advosed 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 -Last SHAVON in 05/2016 showed EF<20% with diffuse hypokinesis, severe MR, severe TR , moderate pulm HTN -was on BB, digoxin, lisinopril and Lasix; all these medications held at this time due to hypotension -Cardiomyopathy is due to malnutrition and gets better with nutritional support -Cardiology consult -BB dose have been increased and Digoxin added COPD: -no symptoms to suggest exacerbation -prior hx of tobacco use -no home inhalers PRIOR DVT: -was on Coumadin, dose increased at end of August -INR is 8.0< thus vitamin K given and Coumadin held; can resume Coumadin now that INR is 1 -will start Coumadin and Heparin -D/C Heparin INR 3.8 Hold Coumadin today and decrease dose for tomorrow Hx of ANOREXIA NERVOSA Poor Nutrition Nutrition consult PT /OT evaluation May need placement Vital Signs: Date Time Temp Pulse Resp B/P Pulse Ox O2 Delivery O2 Flow Rate FiO2 10/06/16 15:07 36.6 99 20 95/65 94 Nasal Cannula 2.0 10/06/16 13:33 86 18 98 Nasal Cannula 2.0 10/06/16 12:28 92 Room Air Diffusion Mask 10/06/16 11:38 36.8 76 18 106/70 93 Room Air 10/06/16 08:01 92 Room Air Diffusion Mask 10/06/16 07:35 36.9 74 20 93/61 90 Room Air Diffusion Mask 10/06/16 04:00 Nasal Cannula 2.0 10/06/16 03:39 37.0 96 18 96/66 98 Nasal Cannula 2.0 10/06/16 00:11 111 18 95 Nasal Cannula 2.0 10/06/16 00:01 Nasal Cannula 2.0 10/05/16 23:01 36.8 104 20 107/71 90 Room Air 10/05/16 20:00 91 Room Air 10/05/16 19:44 36.8 116 16 106/73 91 Room Air Lab Results: Results Past 24 Hours Test 10/05/16 23:35 10/05/16 23:58 10/06/16 00:08 10/06/16 06:24 Range/Units Sodium Level 145 145 136-145 mmol/L Potassium Level 3.1 3.9 3.5-5.1 mmol/L Chloride Level 107 108 98-107 mmol/L Carbon Dioxide Level 26 31 21-32 mmol/L Anion Gap 12.0 6.0 3-11 mmol/L Blood Urea Nitrogen 4 4 7-18 mg/dl Creatinine 0.82 0.80 0.60-1.20 mg/dl Est Creatinine Clear Calc Drug Dose 43.5 44.3 ml/min Estimated GFR () 87.6 90.3 Estimated GFR (Non- 75.6 77.9 BUN/Creatinine Ratio 5.3 4.6 10-20 Random Glucose 133 118 70-99 mg/dl Calcium Level 7.9 7.9 8.5-10.1 mg/dl Magnesium Level 2.4 1.8-2.4 mg/dl Chemistry Specimen Hemolysis Arterial Blood pH 7.44 7.35-7.45 Arterial Blood Partial Pressure CO2 44 35-46 mmHg Arterial Blood Partial Pressure O2 80 80-95 mm/Hg Arterial Blood HCO3 30 19-24 mmol/L Arterial Blood Oxygen Saturation 95.1 90-95 % Arterial Blood Base Excess 5.1 -9-1.8 mEq/L Arterial Blood Gas Delivery 1.5L Kaiden Test POS POS Lactic Acid Level 1.4 0.4-2.0 mmol/L Prothrombin Time 43.2 9.0-12.0 SECONDS Prothromb Time International Ratio 3.8 0.9-1.1 Phosphorus Level 1.9 2.5-4.9 mg/dl 25-Hydroxy Vitamin D Total 12.0 30-100 ng/ml Microbiology Results 10/05/16 Blood Culture, Received Pending 10/05/16 Blood Culture, Received Pending
[2016-10-06] MEDS: METOPROLOL SUCC 50MG EXT REL TAB PO SCH (16:16)
[2016-10-06] MEDS: DIGOXIN 0.125 MG TAB PO SCH (16:16)
[2016-10-06] MEDS: GUAIFENESIN 600 MG TABCR PO SCH (19:51)
[2016-10-07] VITALS (11 sets, daily range): BP systolic 113–132; BP diastolic 73–82; PULSE 64–90; TEMP 36.4–37.4; O2SAT 90–98
[2016-10-07 07:21] LABS: HEMATOCRIT 28.9 % (37-47); MEAN CELL VOLUME 93.5 fL (80-100); MEAN CORPUSCULAR HEMOGLOBIN 29.4 pg (25-34); MEAN CORPUSCULAR HGB CONC 31.5 g/dl (32-36); MEAN PLATELET VOLUME 8.9 fL (7.4-10.4); PLATELET COUNT 422 K/uL (130-400); RED BLOOD COUNT 3.09 M/uL (4.2-5.4); WHITE BLOOD COUNT 6.89 K/uL (4.8-10.8)
[2016-10-07 07:33] LABS: INR 2.3 (0.9-1.1); PROTHROMBIN TIME (PATIENT) 25.9 SECONDS (9.0-12.0)
[2016-10-07] MEDS: GUAIFENESIN 600 MG TABCR PO SCH ×2 (07:39→20:42)
[2016-10-07] MEDS: VENLAFAXINE HCL XR 37.5 MG CAPXR PO SCH (07:39)
[2016-10-07] MEDS: METOPROLOL SUCC 50MG EXT REL TAB PO SCH ×2 (07:39→15:59)
[2016-10-07 07:45] LABS: BUN/CREATININE RATIO 5.6 (10-20); CALCIUM 7.8 mg/dl (8.5-10.1); CREATININE 0.63 mg/dl (0.60-1.20); MAGNESIUM 2.1 mg/dl (1.8-2.4); POTASSIUM 3.5 mmol/L (3.5-5.1)
[2016-10-07 07:46] LABS: PHOSPHORUS 2.2 mg/dl (2.5-4.9)
[2016-10-07] MEDS ORDERED: POTASSIUM PHOS 3 MMOL/1 ML INFUSION IV STA (09:17)
[2016-10-07] MEDS: CEFTRIAXONE SOD INJ 1,000 MG in DEXTROSE 5% 50ML 50 ML IV SCH (09:33)
[2016-10-07] MEDS ORDERED: POTASSIUM PHOSPHATE INJ 21 MMOL in SODIUM CHLORIDE 0.9% 500ML 500 ML IV ONE (10:00)
--- NOTE | 2016-10-07 15:33 | Progress Note ---
Internal Med Progress Note Date of Service: Oct 07, 2016. Provider Documentation: SUBJECTIVE: The patient was seen and examined Moderate SOB at rest with minimal cough Generally weak Denies any pain OBJECTIVE: Vital Signs-as noted below Exam: General-Minimal distress at rest Poor build-secondary to malnutrition Eyes-Normal ENT-normal Neck-supple Lungs-Decreased breath sound bilaterally Occasional crackles at the bases Heart-Regular,no murmur Abdomen-Benign,no masses,bowel sound present Extremities-Trace edema bilaterally Neuro-AAO Generally very weak and lethargic Lab data as noted below. ASSESSMENT & PLAN: POSSIBLE SEPSIS:Increase WCC Tachycardia and Hypotension Secondary to UTI-E Cloi ,pansensitive Blood cultures pending, 1/2 bottles growing gram neg bacilli Lactic acid was 1.9 Started on Aztreonam and Vancomycin Repeat Blood culture-pending D/C Aztreonam and start Ceftriaxone Continue Vancomycin for now D/C vancomycin-repeat Blood culture negative No more fever and no other signs of infection HYPOTENSION: From dehydration -H/O CMP with EF<20% -gentle IV fluids for limited doses due to known systolic CHF and recent cardiogenic shock -BP is maintained without any sig SOB -seems stable-BP is on the lower side RANDOLPH ON CKD STAGE III: -likely prerenal related to dehydration -improving with IV fluids -Normalized now BIPOLAR DISORDER -takes Zyprexa, Lamictal, Remeron, Ritalin -restarted on her home medication -Psychiatry evaluation-appreciate input -No new medication advised 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 -Last SHAVON in 05/2016 showed EF<20% with diffuse hypokinesis, severe MR, severe TR , moderate pulm HTN -was on BB, digoxin, lisinopril and Lasix; all these medications held at this time due to hypotension -Cardiomyopathy is due to malnutrition and gets better with nutritional support -Cardiology consult -BB dose have been increased and Digoxin added -No acute issue COPD: -no symptoms to suggest exacerbation -prior hx of tobacco use -no home inhalers -has minimal wheezing PRIOR DVT: -was on Coumadin, dose increased at end of August -INR is 8.0< thus vitamin K given and Coumadin held; can resume Coumadin now that INR is 1 -will start Coumadin and Heparin -D/C Heparin INR therapeutic Hx of ANOREXIA NERVOSA Poor Nutrition Nutrition consult PT /OT evaluation May need placement Vital Signs: Date Time Temp Pulse Resp B/P Pulse Ox O2 Delivery O2 Flow Rate FiO2 10/07/16 15:08 36.5 90 18 125/80 98 Nasal Cannula 2.0 10/07/16 12:11 92 Nasal Cannula 2.0 10/07/16 11:35 36.4 64 20 113/80 97 2.0 10/07/16 08:47 90 Nasal Cannula 2.0 10/07/16 07:35 36.7 78 20 121/78 90 2.0 10/07/16 04:00 95 Nasal Cannula 2.0 10/07/16 03:18 37.4 81 22 113/73 95 Nasal Cannula 2.0 10/07/16 00:01 97 Nasal Cannula 2.0 10/06/16 23:33 86 18 96 Nasal Cannula 2.0 10/06/16 23:03 36.9 83 20 108/69 97 Nasal Cannula 2.0 10/06/16 20:00 97 Nasal Cannula 2.0 10/06/16 19:33 36.4 88 20 109/72 97 Nasal Cannula 2.0 10/06/16 16:16 99 10/06/16 16:10 92 Room Air Diffusion Mask Lab Results: Results Past 24 Hours Test 10/07/16 07:00 Range/Units White Blood Count 6.89 4.8-10.8 K/uL Red Blood Count 3.09 4.2-5.4 M/uL Hemoglobin 9.1 12.0-16.0 g/dL Hematocrit 28.9 37-47 % Mean Corpuscular Volume 93.5 80-100 fL Mean Corpuscular Hemoglobin 29.4 25-34 pg Mean Corpuscular Hemoglobin Concent 31.5 32-36 g/dl RDW Standard Deviation 61.7 36.4-46.3 fL RDW Coefficient of Variation 18.0 11.5-14.5 % Platelet Count 422 130-400 K/uL Mean Platelet Volume 8.9 7.4-10.4 fL Prothrombin Time 25.9 9.0-12.0 SECONDS Prothromb Time International Ratio 2.3 0.9-1.1 Sodium Level 144 136-145 mmol/L Potassium Level 3.5 3.5-5.1 mmol/L Chloride Level 107 98-107 mmol/L Carbon Dioxide Level 30 21-32 mmol/L Anion Gap 7.0 3-11 mmol/L Blood Urea Nitrogen 4 7-18 mg/dl Creatinine 0.63 0.60-1.20 mg/dl Est Creatinine Clear Calc Drug Dose 57.3 ml/min Estimated GFR () 109.9 Estimated GFR (Non- 94.8 BUN/Creatinine Ratio 5.6 10-20 Random Glucose 76 70-99 mg/dl Calcium Level 7.8 8.5-10.1 mg/dl Phosphorus Level 2.2 2.5-4.9 mg/dl Magnesium Level 2.1 1.8-2.4 mg/dl
[2016-10-07] MEDS: WARFARIN SOD 2 MG TAB PO SCH (15:58)
[2016-10-07] MEDS: DIGOXIN 0.125 MG TAB PO SCH (15:59)
[2016-10-08] VITALS (9 sets, daily range): BP systolic 96–135; BP diastolic 70–85; PULSE 78–101; TEMP 36.3–36.9; O2SAT 93–100
[2016-10-08] MEDS: GUAIFENESIN 600 MG TABCR PO SCH ×2 (07:49→21:04)
[2016-10-08] MEDS: VENLAFAXINE HCL XR 37.5 MG CAPXR PO SCH (07:49)
[2016-10-08] MEDS: METOPROLOL SUCC 50MG EXT REL TAB PO SCH ×2 (07:49→15:54)
[2016-10-08] MEDS: CEFTRIAXONE SOD INJ 1,000 MG in DEXTROSE 5% 50ML 50 ML IV SCH (07:50)
[2016-10-08] MEDS: DIGOXIN 0.125 MG TAB PO SCH (15:54)
[2016-10-08] MEDS: WARFARIN SOD 2 MG TAB PO SCH (15:54)
--- NOTE | 2016-10-08 16:02 | Progress Note ---
Internal Med Progress Note Date of Service: Oct 08, 2016. Provider Documentation: SUBJECTIVE: The patient was seen and examined Moderate SOB at rest with minimal cough Generally weak Looks brighter OBJECTIVE: Vital Signs-as noted below Exam: General-Minimal distress at rest Poor build-secondary to malnutrition Eyes-Normal ENT-normal Neck-supple Lungs-Decreased breath sound bilaterally Occasional crackles at the bases Heart-Regular,no murmur Abdomen-Benign,no masses,bowel sound present Extremities-Trace edema bilaterally Neuro-AAO Generally very weak and lethargic Lab data as noted below. ASSESSMENT & PLAN: POSSIBLE SEPSIS:Increase WCC Tachycardia and Hypotension Secondary to UTI-E Cloi ,pansensitive Blood cultures pending, 1/2 bottles growing gram neg bacilli Lactic acid was 1.9 Started on Aztreonam and Vancomycin Repeat Blood culture-pending D/C Aztreonam and start Ceftriaxone Continue Vancomycin for now D/C vancomycin-repeat Blood culture negative No more fever and no other signs of infection Has been on Ceftriaxone Hx of ANOREXIA NERVOSA Poor Nutrition Nutrition consult-appreciate input HYPOTENSION: From dehydration -H/O CMP with EF<20% -gentle IV fluids for limited doses due to known systolic CHF and recent cardiogenic shock -BP is maintained without any sig SOB -seems stable-BP is on the lower side RANDOLPH ON CKD STAGE III: -likely prerenal related to dehydration -improving with IV fluids -Normalized now BIPOLAR DISORDER -takes Zyprexa, Lamictal, Remeron, Ritalin -restarted on her home medication -Psychiatry evaluation-appreciate input -No new medication advised 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 -Last SHAVON in 05/2016 showed EF<20% with diffuse hypokinesis, severe MR, severe TR , moderate pulm HTN -was on BB, digoxin, lisinopril and Lasix; all these medications held at this time due to hypotension -Cardiomyopathy is due to malnutrition and gets better with nutritional support -Cardiology consult -BB dose have been increased and Digoxin added -No acute issue COPD: -no symptoms to suggest exacerbation -prior hx of tobacco use -no home inhalers -has minimal wheezing PRIOR DVT: -was on Coumadin, dose increased at end of August -INR is 8.0< thus vitamin K given and Coumadin held; can resume Coumadin now that INR is 1 -will start Coumadin and Heparin -D/C Heparin INR therapeutic PT /OT evaluation May need placement Vital Signs: Date Time Temp Pulse Resp B/P Pulse Ox O2 Delivery O2 Flow Rate FiO2 10/08/16 15:54 89 10/08/16 15:16 36.9 89 20 116/76 98 Nasal Cannula 2.0 10/08/16 12:12 99 Nasal Cannula 2.0 10/08/16 11:46 36.6 101 20 96/70 93 2.0 10/08/16 08:04 36.9 101 22 135/85 99 3.0 10/08/16 08:01 99 Nasal Cannula 2.0 10/08/16 04:00 Nasal Cannula 2.0 10/08/16 03:55 36.4 86 19 128/82 99 Nasal Cannula 3.0 10/08/16 00:00 Nasal Cannula 2.0 10/07/16 23:49 36.9 84 20 132/80 93 Nasal Cannula 3.0 10/07/16 20:00 Nasal Cannula 2.0 10/07/16 19:13 36.6 90 20 119/82 95 Nasal Cannula 2.0 10/07/16 16:04 92 Nasal Cannula 2.0
[2016-10-09] VITALS (9 sets, daily range): BP systolic 99–149; BP diastolic 66–92; PULSE 81–109; TEMP 36.4–36.8; O2SAT 83–98
[2016-10-09 07:47] LABS: INR 1.5 (0.9-1.1); PROTHROMBIN TIME (PATIENT) 16.1 SECONDS (9.0-12.0)
[2016-10-09] MEDS: VENLAFAXINE HCL XR 37.5 MG CAPXR PO SCH (07:49)
[2016-10-09] MEDS: GUAIFENESIN 600 MG TABCR PO SCH ×2 (07:49→20:11)
[2016-10-09] MEDS: METOPROLOL SUCC 50MG EXT REL TAB PO SCH ×2 (07:50→16:34)
[2016-10-09] MEDS: CEFTRIAXONE SOD INJ 1,000 MG in DEXTROSE 5% 50ML 50 ML IV SCH (07:50)
[2016-10-09 08:13] LABS: BUN/CREATININE RATIO 4.8 (10-20); CALCIUM 8.5 mg/dl (8.5-10.1); CREATININE 0.56 mg/dl (0.60-1.20); MAGNESIUM 1.8 mg/dl (1.8-2.4); PHOSPHORUS 2.6 mg/dl (2.5-4.9); POTASSIUM 3.4 mmol/L (3.5-5.1)
[2016-10-09] MEDS ORDERED: POTASSIUM CHLORIDE 20 MEQ TABCR PO ONE (10:32)
--- NOTE | 2016-10-09 13:20 | DIAGNOSTIC IMAGING REPORT ---
SINGLE VIEW CHEST CLINICAL HISTORY: CHF. FINDINGS: An AP, portable, semierect chest radiograph is compared to chest x-ray performed 10/05/2016 and correlated with chest CT dated 05/19/2016. The examination is degraded by portable technique and patient rotation. The heart is enlarged and there is atherosclerotic calcification of the thoracic aorta. The pulmonary vasculature is noncongested. Enlargement of the central pulmonary vessels suggests pulmonary artery hypertension. Advanced emphysema and chronic interstitial thickening are similar to previous. There is no airspace consolidation or pleural effusion. No pneumothorax is seen. The skeletal structures are osteopenic. There are healed left-sided rib fractures. IMPRESSION: Cardiomegaly and emphysema. There is no acute cardiopulmonary abnormality. Electronically signed by: Adrian Estrada M.D. 10/09/2016 1:18 PM
--- NOTE | 2016-10-09 15:15 | Progress Note ---
Internal Med Progress Note Date of Service: Oct 09, 2016. Provider Documentation: SUBJECTIVE: The patient was seen and examined Moderate SOB at rest with minimal cough Generally weak and lethargic again today Denies any pain OBJECTIVE: Vital Signs-as noted below Exam: General-Minimal distress at rest Poor build-secondary to malnutrition Eyes-Normal ENT-normal Neck-supple Lungs-Severe Decreased breath sound bilaterally Occasional crackles at the bases Heart-Regular,no murmur Abdomen-Benign,no masses,bowel sound present Extremities-Trace edema bilaterally Neuro-AAO Generally very weak and lethargic Lab data as noted below. 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% -gentle IV fluids for limited doses due to known systolic CHF and recent cardiogenic shock -BP is maintained without any sig SOB -seems stable-BP is controlled RANDOLPH ON CKD STAGE III: -likely prerenal related to dehydration -improving with IV fluids -Normalized now BIPOLAR DISORDER -takes Zyprexa, Lamictal, Remeron, Ritalin -restarted on her home medication -Psychiatry evaluation-appreciate input -No new medication advised 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 -Last SHAVON in 05/2016 showed EF<20% with diffuse hypokinesis, severe MR, severe TR , moderate pulm HTN -was on BB, digoxin, lisinopril and Lasix; all these medications held at this time due to hypotension -Cardiomyopathy is due to malnutrition and gets better with nutritional support -Cardiology consult -appreciate Input -BB dose have been increased and Digoxin added -No acute issue COPD: -no symptoms to suggest exacerbation -prior hx of tobacco use -no home inhalers -has minimal wheezing -CXR-Emphysema ,no CHF PRIOR DVT: -was on Coumadin, dose increased at end of August -INR is 8.0< thus vitamin K given and Coumadin held; can resume Coumadin now that INR is 1 -will start Coumadin and Heparin -D/C Heparin INR therapeutic PT /OT evaluation May need placement Updated Daughter and Sister on 10/09/16-Possible discharge in 2-3 days Likely to need placement Vital Signs: Date Time Temp Pulse Resp B/P Pulse Ox O2 Delivery O2 Flow Rate FiO2 10/09/16 12:40 95 Nasal Cannula 2.0 10/09/16 11:53 36.5 81 16 139/80 94 2.0 10/09/16 10:26 109 83 10/09/16 08:45 95 Nasal Cannula 2.0 10/09/16 07:23 36.8 85 16 143/92 95 1.0 10/09/16 04:30 36.8 86 20 125/83 95 Nasal Cannula 2.0 10/09/16 04:00 Nasal Cannula 2.0 10/08/16 23:59 Nasal Cannula 2.0 10/08/16 23:39 36.9 78 20 119/84 100 Nasal Cannula 3.0 10/08/16 20:00 Nasal Cannula 2.0 10/08/16 19:15 36.3 87 18 120/79 95 Nasal Cannula 2.0 10/08/16 16:24 97 Nasal Cannula 2.0 10/08/16 15:54 89 Lab Results: Results Past 24 Hours Test 10/09/16 07:15 Range/Units Prothrombin Time 16.1 9.0-12.0 SECONDS Prothromb Time International Ratio 1.5 0.9-1.1 Sodium Level 143 136-145 mmol/L Potassium Level 3.4 3.5-5.1 mmol/L Chloride Level 103 98-107 mmol/L Carbon Dioxide Level 29 21-32 mmol/L Anion Gap 11.0 3-11 mmol/L Blood Urea Nitrogen 3 7-18 mg/dl Creatinine 0.56 0.60-1.20 mg/dl Est Creatinine Clear Calc Drug Dose 62.3 ml/min Estimated GFR () 114.2 Estimated GFR (Non- 98.5 BUN/Creatinine Ratio 4.8 10-20 Random Glucose 87 70-99 mg/dl Calcium Level 8.5 8.5-10.1 mg/dl Phosphorus Level 2.6 2.5-4.9 mg/dl Magnesium Level 1.8 1.8-2.4 mg/dl
[2016-10-09] MEDS: WARFARIN SOD 2 MG TAB PO SCH (16:34)
[2016-10-09] MEDS: DIGOXIN 0.125 MG TAB PO SCH (16:34)
[2016-10-09] MEDS: ACETAMINOPHEN 325 MG TAB PO PRN (20:12)
[2016-10-10] VITALS (9 sets, daily range): BP systolic 117–131; BP diastolic 66–84; PULSE 80–83; TEMP 36.5–36.9; O2SAT 93–100
[2016-10-10] MEDS: ACETAMINOPHEN 325 MG TAB PO PRN ×2 (06:47→18:30)
[2016-10-10 07:06] LABS: HEMATOCRIT 30.2 % (37-47); MEAN CELL VOLUME 95.6 fL (80-100); MEAN CORPUSCULAR HEMOGLOBIN 30.4 pg (25-34); MEAN CORPUSCULAR HGB CONC 31.8 g/dl (32-36); MEAN PLATELET VOLUME 9.2 fL (7.4-10.4); PLATELET COUNT 403 K/uL (130-400); RED BLOOD COUNT 3.16 M/uL (4.2-5.4); WHITE BLOOD COUNT 5.64 K/uL (4.8-10.8)
[2016-10-10 07:44] LABS: BUN/CREATININE RATIO 5.2 (10-20); CALCIUM 8.3 mg/dl (8.5-10.1); CREATININE 0.63 mg/dl (0.60-1.20); POTASSIUM 3.8 mmol/L (3.5-5.1)
[2016-10-10] MEDS: GUAIFENESIN 600 MG TABCR PO SCH ×2 (08:46→20:19)
[2016-10-10] MEDS: VENLAFAXINE HCL XR 37.5 MG CAPXR PO SCH (08:46)
[2016-10-10] MEDS: METOPROLOL SUCC 50MG EXT REL TAB PO SCH ×2 (08:46→17:00)
[2016-10-10] MEDS: CEFTRIAXONE SOD INJ 1,000 MG in DEXTROSE 5% 50ML 50 ML IV SCH (10:16)
--- NOTE | 2016-10-10 10:59 | Progress Note ---
Medicine Progress Note Date & Time of Visit: Oct 10, 2016 at 10:11. Subjective Pt was seen and examined Lying in bed comfortable with no distress Pt said that she feels much better this morning She said that her breathing improved denies any chest pain, palpitation, SOB Pt had one episode of diarrhea Objective Last 8 Hrs Date Time Temp Pulse Resp B/P Pulse Ox O2 Delivery O2 Flow Rate FiO2 10/10/16 07:29 36.5 81 20 117/75 93 Nasal Cannula 2.0 10/10/16 04:00 Nasal Cannula 2.0 10/10/16 04:00 36.6 82 18 128/66 96 Nasal Cannula 2.0 Physical Exam: General- No acute distress Head- atraumatic Eyes- PERRL, EOMI ENT- oropharynx clear Neck- supple, no JVD Lungs- clear to auscultation and percussion Heart- regular rhythm; no murmur Abdomen- normal bowel sounds, soft Extremities- no pretibial edema, no calf tenderness Neuro- alert, oriented x 3; PERRL, EOMI; Skin- warm & dry Laboratory Results: Last 24 Hours Test 10/10/16 06:27 White Blood Count 5.64 K/uL Red Blood Count 3.16 M/uL Hemoglobin 9.6 g/dL Hematocrit 30.2 % Mean Corpuscular Volume 95.6 fL Mean Corpuscular Hemoglobin 30.4 pg Mean Corpuscular Hemoglobin Concent 31.8 g/dl RDW Standard Deviation 60.9 fL RDW Coefficient of Variation 17.3 % Platelet Count 403 K/uL Mean Platelet Volume 9.2 fL Sodium Level 145 mmol/L Potassium Level 3.8 mmol/L Chloride Level 105 mmol/L Carbon Dioxide Level 31 mmol/L Anion Gap 9.0 mmol/L Blood Urea Nitrogen 3 mg/dl Creatinine 0.63 mg/dl Est Creatinine Clear Calc Drug Dose 56.1 ml/min Estimated GFR () 109.9 Estimated GFR (Non- 94.8 BUN/Creatinine Ratio 5.2 Random Glucose 76 mg/dl Calcium Level 8.3 mg/dl Assessment & Plan POSSIBLE SEPSIS:Increase WCC Tachycardia and Hypotension Secondary to UTI-E Cloi ,pansensitive Blood cultures pending, 1/2 bottles growing gram neg bacilli Lactic acid was 1.9 Started on Aztreonam and Vancomycin Repeat Blood culture-pending D/C Aztreonam and start Ceftriaxone Continue Vancomycin for now D/C vancomycin-repeat Blood culture negative No more fever and no other signs of infection Has been on Ceftriaxone for 7 days. 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 -Last SH[facility] in 05/2016 showed EF<20% with diffuse hypokinesis, severe MR, severe TR , moderate pulm HTN -was on BB, digoxin, lisinopril and Lasix; all these medications held at this time due to hypotension -Cardiomyopathy is due to malnutrition and gets better with nutritional support -Cardiology consult -appreciate Input -BB dose have been increased and Digoxin added -No acute issue - Stable COPD: -no symptoms to suggest exacerbation -prior hx of tobacco use -no home inhalers -has minimal wheezing -CXR-Emphysema ,no CHF - Continue oxygen supplement prn PRIOR DVT: -was on Coumadin, dose increased at end of August -INR is 8.0< thus vitamin K given and Coumadin held; can resume Coumadin now that INR is 1 -will start Coumadin and Heparin -D/C Heparin -INR 1.5 today - will dose coumadin PT /OT evaluation May need placement Will discharge tomorrow Waiting for placement Current Inpatient Medications: Current Inpatient Medications Medications (Trade) Dose Ordered Sig/[place] Route Start Time Stop Time Status Last Admin Dose Admin Acetaminophen (Tylenol Tab) 650 mg Q4H PRN PO 10/01/16 18:30 10/31/16 18:29 10/10/16 06:47 650 MG Ondansetron HCl (Zofran Inj) 4 mg Q6H PRN IV 10/01/16 18:30 10/31/16 18:29 Polyethylene (Miralax Powder Packet) 17 gm DAILY PRN PO 10/01/16 18:30 10/31/16 18:29 Docusate Sodium (coLACE CAP) 100 mg BID PRN PO 10/01/16 18:45 10/31/16 18:44 Lamotrigine (Lamictal Tab) 100 mg BID PO 10/01/16 21:00 10/31/16 20:59 10/10/16 08:46 100 MG Venlafaxine HCl 37.5 mg 37.5 mg DAILY PO 10/02/16 09:00 11/01/16 08:59 10/10/16 08:46 37.5 MG Ceftriaxone Sodium/Dextrose (Rocephin Inj/D5 50ml) 60 ml @ 100 mls/hr DAILY IV 10/04/16 09:00 10/14/16 08:59 10/09/16 07:50 100 MLS/HR Hydroxyzine HCl (Vistaril Tab) 10 mg Q6H PRN PO 10/05/16 05:00 11/04/16 04:59 Lorazepam (Ativan Inj) 0.25 mg Q4H PRN IV 10/05/16 05:00 11/04/16 04:59 Digoxin (Lanoxin Tab) 0.125 mg DAILY@16 PO 10/06/16 16:00 11/05/16 15:59 10/09/16 16:34 0.125 MG Loperamide HCl (Imodium Cap) 2 mg UD PRN PO 10/05/16 22:00 11/04/16 21:59 10/05/16 22:03 2 MG Ondansetron HCl (Zofran Odt) 4 mg Q4H PRN PO 10/05/16 22:00 11/04/16 21:59 Ipratropium [place] (Atrovent 0.02% 0.5MG/2.5ML Neb) 0.5 mg Q4H PRN INH 10/05/16 23:45 11/04/16 23:44 10/06/16 23:33 0.5 MG Levalbuterol (Xopenex 1.25MG/ 0.5ML Neb) 1.25 mg Q4H PRN INH 10/05/16 23:45 11/04/16 23:44 10/06/16 23:33 1.25 MG Guaifenesin (Mucinex Contr Rel Tab) 600 mg Q12 PO 10/06/16 21:00 11/05/16 20:59 10/10/16 08:46 600 MG Ergocalciferol (Vitamin D Cap) 50,000 interunit Fr@0900 PO 10/06/16 10:00 11/10/16 09:01 10/06/16 09:45 50,000 INTERUNIT Metoprolol Succinate (Toprol Xl Tab) 50 mg BID17 PO 10/06/16 17:00 11/05/16 16:59 10/10/16 08:46 50 MG Warfarin Sodium (Coumadin Tab) 2 mg DAILY@16 PO 10/07/16 16:00 11/06/16 15:59 10/09/16 16:34 2 MG
[2016-10-10] MEDS: BOOST BREEZE NUTRITION DRINK 1 BOX PO SCH ×2 (11:30→17:00)
[2016-10-10] MEDS: DIGOXIN 0.125 MG TAB PO SCH (16:59)
[2016-10-10] MEDS: WARFARIN SOD 2 MG TAB PO SCH (17:00)
[2016-10-10 18:02] LABS: INR 1.8 (0.9-1.1); PROTHROMBIN TIME (PATIENT) 19.6 SECONDS (9.0-12.0)
[2016-10-11] VITALS: BP 148/80; PULSE 89; TEMP 36.7; O2SAT 96
[2016-10-11 04:00] VITALS: BP 146/82; PULSE 81; TEMP 36.6; O2SAT 96
[2016-10-11 07:26] VITALS: BP 119/85; PULSE 93; TEMP 36.8; O2SAT 98
[2016-10-11] MEDS: hydrOXYzine HCL 10 MG TAB PO PRN (08:24)
[2016-10-11] MEDS: VENLAFAXINE HCL XR 37.5 MG CAPXR PO SCH (08:24)
[2016-10-11] MEDS: CEFTRIAXONE SOD INJ 1,000 MG in DEXTROSE 5% 50ML 50 ML IV SCH (08:24)
[2016-10-11] MEDS: BOOST BREEZE NUTRITION DRINK 1 BOX PO SCH ×4 (08:24→16:30)
[2016-10-11] MEDS: GUAIFENESIN 600 MG TABCR PO SCH ×2 (08:24→20:21)
[2016-10-11] MEDS: METOPROLOL SUCC 50MG EXT REL TAB PO SCH ×2 (08:25→16:30)
[2016-10-11 09:59] LABS: HEMATOCRIT 35.4 % (37-47); MEAN CELL VOLUME 95.2 fL (80-100); MEAN CORPUSCULAR HEMOGLOBIN 30.1 pg (25-34); MEAN CORPUSCULAR HGB CONC 31.6 g/dl (32-36); PLATELET COUNT 336 K/uL (130-400); RED BLOOD COUNT 3.72 M/uL (4.2-5.4); WHITE BLOOD COUNT 7.62 K/uL (4.8-10.8)
[2016-10-11 10:09] LABS: INR 2.3 (0.9-1.1); PROTHROMBIN TIME (PATIENT) 25.9 SECONDS (9.0-12.0)
[2016-10-11 11:15] VITALS: BP 119/82; PULSE 93; TEMP 36.3; O2SAT 91
[2016-10-11] MEDS: DIGOXIN 0.125 MG TAB PO SCH (15:28)
[2016-10-11] MEDS: WARFARIN SOD 2 MG TAB PO SCH (15:29)
[2016-10-11 15:52] VITALS: BP 106/70; PULSE 93; TEMP 36.7; O2SAT 95
[2016-10-11 19:36] VITALS: BP 130/83; PULSE 82; TEMP 36.2; O2SAT 97
--- NOTE | 2016-10-11 22:26 | Progress Note ---
Medicine Progress Note Date & Time of Visit: Oct 11, 2016 at 22:23. Subjective Pt was seen and examined Sitting in bed with no distress Pt said that she feels better she continue to have diarrhea denies any chest pain, palpitation, dizziness Objective Last 8 Hrs Date Time Temp Pulse Resp B/P Pulse Ox O2 Delivery O2 Flow Rate FiO2 10/11/16 19:55 Nasal Cannula 2.0 10/11/16 19:36 36.2 82 19 130/83 97 Nasal Cannula 2.0 10/11/16 15:52 36.7 93 18 106/70 95 Nasal Cannula 2.0 10/11/16 15:44 Nasal Cannula 2.0 10/11/16 15:28 78 Physical Exam: General- No acute distress Head- atraumatic Eyes- PERRL, EOMI ENT- oropharynx clear Neck- supple, no JVD Lungs- clear to auscultation and percussion Heart- regular rhythm; no murmur Abdomen- normal bowel sounds, soft Extremities- no pretibial edema, no calf tenderness Neuro- alert, oriented x 3; PERRL, EOMI; Skin- warm & dry Laboratory Results: Last 24 Hours Test 10/11/16 09:44 White Blood Count 7.62 K/uL Red Blood Count 3.72 M/uL Hemoglobin 11.2 g/dL Hematocrit 35.4 % Mean Corpuscular Volume 95.2 fL Mean Corpuscular Hemoglobin 30.1 pg Mean Corpuscular Hemoglobin Concent 31.6 g/dl RDW Standard Deviation 60.2 fL RDW Coefficient of Variation 17.4 % Platelet Count 336 K/uL Mean Platelet Volume 10.0 fL Prothrombin Time 25.9 SECONDS Prothromb Time International Ratio 2.3 Date/Time Source Procedure Growth Status 10/11/16 00:00 Stool C.difficile Toxin B Gene (PCR) - Final No C. difficile toxin B gene detected Complete Assessment & Plan POSSIBLE SEPSIS:Increase WCC Tachycardia and Hypotension Secondary to UTI-E Cloi ,pansensitive Blood cultures pending, 1/2 bottles growing gram neg bacilli Lactic acid was 1.9 Started on Aztreonam and Vancomycin Repeat Blood culture-pending D/C Aztreonam and start Ceftriaxone Continue Vancomycin for now D/C vancomycin-repeat Blood culture negative No more fever and no other signs of infection Has been on Ceftriaxone for 7 days. 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 -Last [facility] in 05/2016 showed EF<20% with diffuse hypokinesis, severe MR, severe TR , moderate pulm HTN -was on BB, digoxin, lisinopril and Lasix; all these medications held at this time due to hypotension -Cardiomyopathy is due to malnutrition and gets better with nutritional support -Cardiology consult -appreciate Input -BB dose have been increased and Digoxin added -No acute issue - Stable COPD: -no symptoms to suggest exacerbation -prior hx of tobacco use -no home inhalers -has minimal wheezing -CXR-Emphysema ,no CHF - Continue oxygen supplement prn PRIOR DVT: -was on Coumadin, dose increased at end of August -INR is 8.0< thus vitamin K given and Coumadin held; can resume Coumadin now that INR is 1 -will start Coumadin and Heparin -D/C Heparin -INR 2.3 today - will dose coumadin Disposition Waiting for placement Continue PT/OT Current Inpatient Medications: Current Inpatient Medications Medications (Trade) Dose Ordered Sig/[place] Route Start Time Stop Time Status Last Admin Dose Admin Acetaminophen (Tylenol Tab) 650 mg Q4H PRN PO 10/01/16 18:30 10/31/16 18:29 10/10/16 18:30 650 MG Ondansetron HCl (Zofran Inj) 4 mg Q6H PRN IV 10/01/16 18:30 10/31/16 18:29 Polyethylene (Miralax Powder Packet) 17 gm DAILY PRN PO 10/01/16 18:30 10/31/16 18:29 Docusate Sodium (coLACE CAP) 100 mg BID PRN PO 10/01/16 18:45 10/31/16 18:44 Lamotrigine (Lamictal Tab) 100 mg BID PO 10/01/16 21:00 10/31/16 20:59 10/11/16 20:22 100 MG Venlafaxine HCl 37.5 mg 37.5 mg DAILY PO 10/02/16 09:00 11/01/16 08:59 10/11/16 08:24 37.5 MG Ceftriaxone Sodium/Dextrose (Rocephin Inj/D5 50ml) 60 ml @ 100 mls/hr DAILY IV 10/04/16 09:00 10/14/16 08:59 10/11/16 08:24 100 MLS/HR Hydroxyzine HCl (Vistaril Tab) 10 mg Q6H PRN PO 10/05/16 05:00 11/04/16 04:59 10/11/16 08:24 10 MG Lorazepam (Ativan Inj) 0.25 mg Q4H PRN IV 10/05/16 05:00 11/04/16 04:59 Digoxin (Lanoxin Tab) 0.125 mg DAILY@16 PO 10/06/16 16:00 11/05/16 15:59 10/11/16 15:28 0.125 MG Loperamide HCl (Imodium Cap) 2 mg UD PRN PO 10/05/16 22:00 11/04/16 21:59 10/05/16 22:03 2 MG Ondansetron HCl (Zofran Odt) 4 mg Q4H PRN PO 10/05/16 22:00 11/04/16 21:59 Ipratropium [place] (Atrovent 0.02% 0.5MG/2.5ML Neb) 0.5 mg Q4H PRN INH 10/05/16 23:45 11/04/16 23:44 10/06/16 23:33 0.5 MG Levalbuterol (Xopenex 1.25MG/ 0.5ML Neb) 1.25 mg Q4H PRN INH 10/05/16 23:45 11/04/16 23:44 10/06/16 23:33 1.25 MG Guaifenesin (Mucinex Contr Rel Tab) 600 mg Q12 PO 10/06/16 21:00 11/05/16 20:59 10/11/16 20:21 600 MG Ergocalciferol (Vitamin D Cap) 50,000 interunit Fr@0900 PO 10/06/16 10:00 11/10/16 09:01 10/06/16 09:45 50,000 INTERUNIT Metoprolol Succinate (Toprol Xl Tab) 50 mg BID17 PO 10/06/16 17:00 11/05/16 16:59 10/11/16 16:30 50 MG Warfarin Sodium (Coumadin Tab) 2 mg DAILY@16 PO 10/07/16 16:00 11/06/16 15:59 10/11/16 15:29 2 MG Enteral Nutritional Formula (Boost Breeze Nutritional Drink) 1 box TIDM PO 10/10/16 11:30 11/09/16 11:29 10/11/16 16:30 1 BOX
[2016-10-12] VITALS (9 sets, daily range): BP systolic 122–148; BP diastolic 69–91; PULSE 79–92; TEMP 36.3–36.9; O2SAT 94–97
[2016-10-12 07:24] LABS: PROTHROMBIN TIME (PATIENT) 33.5 SECONDS (9.0-12.0)
[2016-10-12] MEDS: VENLAFAXINE HCL XR 37.5 MG CAPXR PO SCH (08:00)
[2016-10-12] MEDS: GUAIFENESIN 600 MG TABCR PO SCH ×2 (08:00→21:17)
[2016-10-12] MEDS: METOPROLOL SUCC 50MG EXT REL TAB PO SCH ×2 (08:01→16:17)
[2016-10-12] MEDS: BOOST BREEZE NUTRITION DRINK 1 BOX PO SCH ×3 (08:01→16:17)
--- NOTE | 2016-10-12 12:26 | Progress Note ---
Medicine Progress Note Date & Time of Visit: Oct 12, 2016 at 12:21. Subjective Pt was seen and examined Pt said that she feels fine she said that she is still having diarrhea she denies any fever, palpitation, dizziness and SOB Objective Last 8 Hrs Date Time Temp Pulse Resp B/P Pulse Ox O2 Delivery O2 Flow Rate FiO2 10/12/16 11:42 Nasal Cannula 2.0 10/12/16 11:24 36.6 90 18 148/91 94 1.0 10/12/16 08:00 Nasal Cannula 2.0 10/12/16 08:00 36.3 90 18 124/83 97 3.0 Physical Exam: General- No acute distress Head- atraumatic Eyes- PERRL, EOMI ENT- oropharynx clear Neck- supple, no JVD Lungs- clear to auscultation and percussion Heart- regular rhythm; no murmur Abdomen- normal bowel sounds, soft Extremities- no pretibial edema, no calf tenderness Neuro- alert, oriented x 3; PERRL, EOMI; Skin- warm & dry Laboratory Results: Last 24 Hours Test 10/12/16 06:42 Prothrombin Time 33.5 SECONDS Prothromb Time International Ratio 3.0 Assessment & Plan POSSIBLE SEPSIS:Increase WCC Tachycardia and Hypotension Secondary to UTI-E Cloi ,pansensitive Blood cultures pending, 1/2 bottles growing gram neg bacilli Lactic acid was 1.9 Started on Aztreonam and Vancomycin Repeat Blood culture-pending D/C Aztreonam and start Ceftriaxone Continue Vancomycin for now D/C vancomycin-repeat Blood culture negative No more fever and no other signs of infection Completed the course of ceftriaxone Afebrile, No WBC resolved Diarrhea Stools for Cdiff negative continue monitor Hx of ANOREXIA NERVOSA Poor Nutrition Nutrition consult-appreciate input She has been trying to eat as advised encourage pt to eat Tolerated diet HYPOTENSION: -Possible related to dehydration -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 -Last [facility] in 05/2016 showed EF<20% with diffuse hypokinesis, severe MR, severe TR , moderate pulm HTN -was on BB, digoxin, lisinopril and Lasix; all these medications held at this time due to hypotension -Cardiomyopathy is due to malnutrition and gets better with nutritional support -Cardiology consult -appreciate Input -BB dose have been increased and Digoxin added -No acute issue - Stable COPD: -no symptoms to suggest exacerbation -prior hx of tobacco use -no home inhalers -has minimal wheezing -CXR-Emphysema ,no CHF - Continue oxygen supplement prn PRIOR DVT: -was on Coumadin, dose increased at end of August -INR is 8.0< thus vitamin K given and Coumadin held; can resume Coumadin now that INR is 1 -will start Coumadin and Heparin -D/C Heparin -INR 3 today - will dose coumadin Disposition Waiting for placement Continue PT/OT Current Inpatient Medications: Current Inpatient Medications Medications (Trade) Dose Ordered Sig/[place] Route Start Time Stop Time Status Last Admin Dose Admin Acetaminophen (Tylenol Tab) 650 mg Q4H PRN PO 10/01/16 18:30 10/31/16 18:29 10/10/16 18:30 650 MG Ondansetron HCl (Zofran Inj) 4 mg Q6H PRN IV 10/01/16 18:30 10/31/16 18:29 Polyethylene (Miralax Powder Packet) 17 gm DAILY PRN PO 10/01/16 18:30 10/31/16 18:29 Docusate Sodium (coLACE CAP) 100 mg BID PRN PO 10/01/16 18:45 10/31/16 18:44 Lamotrigine (Lamictal Tab) 100 mg BID PO 10/01/16 21:00 10/31/16 20:59 10/12/16 08:00 100 MG Venlafaxine HCl (effeXOR EXTENDED REL CAP) 37.5 mg DAILY PO 10/02/16 09:00 11/01/16 08:59 10/12/16 08:00 37.5 MG Hydroxyzine HCl (Vistaril Tab) 10 mg Q6H PRN PO 10/05/16 05:00 11/04/16 04:59 10/11/16 08:24 10 MG Lorazepam (Ativan Inj) 0.25 mg Q4H PRN IV 10/05/16 05:00 11/04/16 04:59 Digoxin (Lanoxin Tab) 0.125 mg DAILY@16 PO 10/06/16 16:00 11/05/16 15:59 10/11/16 15:28 0.125 MG Loperamide HCl (Imodium Cap) 2 mg UD PRN PO 10/05/16 22:00 11/04/16 21:59 10/05/16 22:03 2 MG Ondansetron HCl (Zofran Odt) 4 mg Q4H PRN PO 10/05/16 22:00 11/04/16 21:59 Ipratropium [place] (Atrovent 0.02% 0.5MG/2.5ML Neb) 0.5 mg Q4H PRN INH 10/05/16 23:45 11/04/16 23:44 10/06/16 23:33 0.5 MG Levalbuterol (Xopenex 1.25MG/ 0.5ML Neb) 1.25 mg Q4H PRN INH 10/05/16 23:45 11/04/16 23:44 10/06/16 23:33 1.25 MG Guaifenesin (Mucinex Contr Rel Tab) 600 mg Q12 PO 10/06/16 21:00 11/05/16 20:59 10/12/16 08:00 600 MG Ergocalciferol (Vitamin D Cap) 50,000 interunit Fr@0900 PO 10/06/16 10:00 11/10/16 09:01 10/06/16 09:45 50,000 INTERUNIT Metoprolol Succinate (Toprol Xl Tab) 50 mg BID17 PO 10/06/16 17:00 11/05/16 16:59 10/12/16 08:01 50 MG Warfarin Sodium (Coumadin Tab) 2 mg DAILY@16 PO 10/07/16 16:00 11/06/16 15:59 10/11/16 15:29 2 MG Enteral Nutritional Formula (Boost Breeze Nutritional Drink) 1 box TIDM PO 10/10/16 11:30 11/09/16 11:29 10/12/16 11:05 1 BOX
[2016-10-12] MEDS: ACETAMINOPHEN 325 MG TAB PO PRN (14:54)
[2016-10-12] MEDS: WARFARIN SOD 2 MG TAB PO SCH (16:15)
[2016-10-12] MEDS: DIGOXIN 0.125 MG TAB PO SCH (16:15)
[2016-10-13] MEDS: ACETAMINOPHEN 325 MG TAB PO PRN ×2 (00:16→21:43)
[2016-10-13 06:54] LABS: HEMATOCRIT 29.4 % (37-47); MEAN CELL VOLUME 93.6 fL (80-100); MEAN CORPUSCULAR HEMOGLOBIN 29.9 pg (25-34); MEAN PLATELET VOLUME 9.3 fL (7.4-10.4); PLATELET COUNT 363 K/uL (130-400); RED BLOOD COUNT 3.14 M/uL (4.2-5.4); WHITE BLOOD COUNT 5.42 K/uL (4.8-10.8)
[2016-10-13 06:58] LABS: PROTHROMBIN TIME (PATIENT) 22.2 SECONDS (9.0-12.0)
[2016-10-13 07:27] LABS: BUN/CREATININE RATIO 7.9 (10-20); CALCIUM 8.5 mg/dl (8.5-10.1); CREATININE 0.53 mg/dl (0.60-1.20); POTASSIUM 2.9 mmol/L (3.5-5.1)
[2016-10-13] MEDS: BOOST BREEZE NUTRITION DRINK 1 BOX PO SCH ×3 (08:00→16:39)
[2016-10-13 08:06] VITALS: BP 128/84; PULSE 80
[2016-10-13] MEDS: GUAIFENESIN 600 MG TABCR PO SCH ×2 (08:08→21:03)
[2016-10-13] MEDS: VENLAFAXINE HCL XR 37.5 MG CAPXR PO SCH (08:08)
[2016-10-13] MEDS: METOPROLOL SUCC 50MG EXT REL TAB PO SCH ×2 (08:08→16:39)
[2016-10-13] MEDS: ERGOCALCIFEROL 50,000 INTER.UNIT CAP PO SCH (08:09)
[2016-10-13 08:17] VITALS: BP 146/85; PULSE 77; TEMP 36.5; O2SAT 97
[2016-10-13] MEDS ORDERED: POTASSIUM CHLORIDE 20 MEQ TABCR PO ONE (09:30)
[2016-10-13] MEDS ORDERED: POTASSIUM CHLR 10 MEQ / WTR 10 MEQ in PREMIXED WATER 100 ML IV ONE (09:45)
[2016-10-13] MEDS: WARFARIN SOD 2 MG TAB PO SCH (15:42)
[2016-10-13 16:26] VITALS: BP 138/85; PULSE 89; TEMP 36.5; O2SAT 100
[2016-10-13] MEDS: DIGOXIN 0.125 MG TAB PO SCH (16:39)
--- NOTE | 2016-10-13 16:49 | Progress Note ---
Medicine Progress Note Date & Time of Visit: Oct 13, 2016 at 16:36. Subjective Pt was seen and examined sitting in bed with no distress Pt denies any chest pain, palpitation dizziness and sob she is been very careful about what she is eating Objective Last 8 Hrs Date Time Temp Pulse Resp B/P Pulse Ox O2 Delivery O2 Flow Rate FiO2 10/13/16 16:26 36.5 89 20 138/85 100 Nasal Cannula 2.0 10/13/16 16:00 Nasal Cannula 2.0 Physical Exam: General- No acute distress Head- atraumatic Eyes- PERRL, EOMI ENT- oropharynx clear Neck- supple, no JVD Lungs- clear to auscultation and percussion Heart- regular rhythm; no murmur Abdomen- normal bowel sounds, soft Extremities- no pretibial edema, no calf tenderness Neuro- alert, oriented x 3; PERRL, EOMI; Skin- warm & dry Laboratory Results: Last 24 Hours Test 10/13/16 06:07 White Blood Count 5.42 K/uL Red Blood Count 3.14 M/uL Hemoglobin 9.4 g/dL Hematocrit 29.4 % Mean Corpuscular Volume 93.6 fL Mean Corpuscular Hemoglobin 29.9 pg Mean Corpuscular Hemoglobin Concent 32.0 g/dl RDW Standard Deviation 57.4 fL RDW Coefficient of Variation 16.9 % Platelet Count 363 K/uL Mean Platelet Volume 9.3 fL Prothrombin Time 22.2 SECONDS Prothromb Time International Ratio 2.0 Sodium Level 145 mmol/L Potassium Level 2.9 mmol/L Chloride Level 105 mmol/L Carbon Dioxide Level 29 mmol/L Anion Gap 11.0 mmol/L Blood Urea Nitrogen 4 mg/dl Creatinine 0.53 mg/dl Est Creatinine Clear Calc Drug Dose 64.7 ml/min Estimated GFR () 116.3 Estimated GFR (Non- 100.3 BUN/Creatinine Ratio 7.9 Random Glucose 77 mg/dl Calcium Level 8.5 mg/dl Assessment & Plan POSSIBLE SEPSIS:Increase WCC Tachycardia and Hypotension Secondary to UTI-E Cloi ,pansensitive Blood cultures pending, 1/2 bottles growing gram neg bacilli Lactic acid was 1.9 Started on Aztreonam and Vancomycin Repeat Blood culture-pending D/C Aztreonam and start Ceftriaxone Continue Vancomycin for now D/C vancomycin-repeat Blood culture negative No more fever and no other signs of infection Completed the course of ceftriaxone Afebrile, No WBC resolved Hypokalemia Potassium replaced will continue monitor BMP will start on potassium supplement Diarrhea Stools for Cdiff negative improved Hx of ANOREXIA NERVOSA Poor Nutrition Nutrition consult-appreciate input She has been trying to eat as advised encourage pt to eat Tolerated diet HYPOTENSION: -Possible related to dehydration -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 -Last SHAVON in 05/2016 showed EF<20% with diffuse hypokinesis, severe MR, severe TR , moderate pulm HTN -was on BB, digoxin, lisinopril and Lasix; all these medications held at this time due to hypotension -Cardiomyopathy is due to malnutrition and gets better with nutritional support -Cardiology consult -appreciate Input -BB dose have been increased and Digoxin added -No acute issue - Stable COPD: -no symptoms to suggest exacerbation -prior hx of tobacco use -no home inhalers -has minimal wheezing -CXR-Emphysema ,no CHF - Continue oxygen supplement prn -Stable PRIOR DVT: -was on Coumadin, dose increased at end of August -INR is 8.0< thus vitamin K given and Coumadin held; can resume Coumadin now that INR is 1 -was starting on Coumadin and Heparin -D/C Heparin -INR 2 today - will dose coumadin Disposition Will discharge today to [facility] for rehab Continue PT/OT Consultants: Psych Current Inpatient Medications: Current Inpatient Medications Medications (Trade) Dose Ordered Sig/[place] Route Start Time Stop Time Status Last Admin Dose Admin Acetaminophen (Tylenol Tab) 650 mg Q4H PRN PO 10/01/16 18:30 10/31/16 18:29 10/13/16 00:16 650 MG Ondansetron HCl (Zofran Inj) 4 mg Q6H PRN IV 10/01/16 18:30 10/31/16 18:29 Polyethylene (Miralax Powder Packet) 17 gm DAILY PRN PO 10/01/16 18:30 10/31/16 18:29 Docusate Sodium (coLACE CAP) 100 mg BID PRN PO 10/01/16 18:45 10/31/16 18:44 Lamotrigine (Lamictal Tab) 100 mg BID PO 10/01/16 21:00 10/31/16 20:59 10/13/16 08:08 100 MG Venlafaxine HCl (effeXOR EXTENDED REL CAP) 37.5 mg DAILY PO 10/02/16 09:00 11/01/16 08:59 10/13/16 08:08 37.5 MG Hydroxyzine HCl (Vistaril Tab) 10 mg Q6H PRN PO 10/05/16 05:00 11/04/16 04:59 10/11/16 08:24 10 MG Lorazepam (Ativan Inj) 0.25 mg Q4H PRN IV 10/05/16 05:00 11/04/16 04:59 Digoxin (Lanoxin Tab) 0.125 mg DAILY@16 PO 10/06/16 16:00 11/05/16 15:59 10/12/16 16:15 0.125 MG Loperamide HCl (Imodium Cap) 2 mg UD PRN PO 10/05/16 22:00 11/04/16 21:59 10/05/16 22:03 2 MG Ondansetron HCl (Zofran Odt) 4 mg Q4H PRN PO 10/05/16 22:00 11/04/16 21:59 Ipratropium [place] (Atrovent 0.02% 0.5MG/2.5ML Neb) 0.5 mg Q4H PRN INH 10/05/16 23:45 11/04/16 23:44 10/06/16 23:33 0.5 MG Levalbuterol (Xopenex 1.25MG/ 0.5ML Neb) 1.25 mg Q4H PRN INH 10/05/16 23:45 11/04/16 23:44 10/06/16 23:33 1.25 MG Guaifenesin (Mucinex Contr Rel Tab) 600 mg Q12 PO 10/06/16 21:00 11/05/16 20:59 10/13/16 08:08 600 MG Ergocalciferol (Vitamin D Cap) 50,000 interunit Fr@0900 PO 10/06/16 10:00 11/10/16 09:01 10/13/16 08:09 50,000 INTERUNIT Metoprolol Succinate (Toprol Xl Tab) 50 mg BID17 PO 10/06/16 17:00 11/05/16 16:59 10/13/16 08:08 50 MG Warfarin Sodium (Coumadin Tab) 2 mg DAILY@16 PO 10/07/16 16:00 11/06/16 15:59 10/13/16 15:42 2 MG Enteral Nutritional Formula (Boost Breeze Nutritional Drink) 1 box TIDM PO 10/10/16 11:30 11/09/16 11:29 10/12/16 11:05 1 BOX
[2016-10-13] MEDS ORDERED: Boost Nutritional Drink PO (17:01)
[2016-10-13] MEDS ORDERED: LSN5 PO (17:01)
[2016-10-13] MEDS ORDERED: TPRSR50 PO (17:01)
[2016-10-13] MEDS ORDERED: LSX40 PO (17:01)
[2016-10-13] MEDS ORDERED: CMD2 PO (17:01)
[2016-10-13] MEDS ORDERED: VTMD PO (17:01)
--- NOTE | 2016-10-13 17:12 | Discharge Instructions ---
Discharge Instructions Admission Reason for Admission: Sepsis,Uti(Urinary Tract Infection) Discharge Discharge Diagnosis / Problem: Urosepsis, Low Vit D, Hypokalemia, supratherapeutic INR, Bipolar Disorder Discharge Goals Goal(s): Decrease discomfort, Improve function, Improve disease control Activity Recommendations Activity Limitations: resume your previous activity (as tolerated) . Instructions / Follow-Up Instructions / Follow-Up Patient will be discharge to [facility] Follow up with your primary care provider upon discharge from rehab Follow up with your psychiatrist upon discharge from rehab Continue Physical therapy/OT eval fall precaution Monitor PT/INR closely INR today 2 (10/13/16), can be check on Sunday. discharge on Coumadin 2 mg daily Monitor BMP for hypokalemia and renal function Current Hospital Diet Patient's current hospital diet: Low Fiber Diet, Low Lactose Diet Discharge Diet Recommended Diet: AHA Diet (Heart Healthy) Pending Studies Studies pending at discharge: no Medical Emergencies . Who to Call and When: Medical Emergencies: If at any time you feel your situation is an emergency, please call 911 immediately. . Non-Emergent Contact Non-Emergency issues call your: Primary Care Provider Call Non-Emergent contact if: you have any medication questions . . "Provider Documentation" section prepared by Isaac Thomas. VTE Core Measure Inpt VTE Proph given/why not?: Warfarin (Coumadin), Treatment not indicated ( Supratherapeutic INR)
[2016-10-13] MEDS ORDERED: MCRK20 PO (17:16)
[2016-10-13] MEDS ORDERED: DIGO30TA PO (21:15)
[2016-10-13] MEDS ORDERED: VENL1CAP92 PO (21:15)
[2016-10-13 23:45] VITALS: BP 113/78; PULSE 90; TEMP 36.5; O2SAT 90
[2016-10-14] VITALS: O2SAT 90
[2016-10-14 07:09] VITALS: BP 159/92; PULSE 85; TEMP 36.7; O2SAT 96
[2016-10-14 08:00] VITALS: O2SAT 92
[2016-10-14] MEDS: BOOST BREEZE NUTRITION DRINK 1 BOX PO SCH ×2 (08:00→12:00)
[2016-10-14 08:15] VITALS: BP 160/80; PULSE 88
[2016-10-14] MEDS: GUAIFENESIN 600 MG TABCR PO SCH (08:15)
[2016-10-14] MEDS: VENLAFAXINE HCL XR 37.5 MG CAPXR PO SCH (08:16)
[2016-10-14] MEDS: METOPROLOL SUCC 50MG EXT REL TAB PO SCH (08:16)
[2016-10-14 08:18] LABS: INR 1.8 (0.9-1.1); PROTHROMBIN TIME (PATIENT) 20.1 SECONDS (9.0-12.0)
[2016-10-14 08:30] LABS: BUN/CREATININE RATIO 6.7 (10-20); CREATININE 0.55 mg/dl (0.60-1.20)
[2016-10-14] MEDS: hydrOXYzine HCL 10 MG TAB PO PRN (08:38)
--- NOTE | 2016-10-19 23:17 | Discharge Summary ---
Discharge Summary Admission Date: Oct 01, 2016 at 18:28 Discharge Date: Oct 13, 2016 Discharge Disposition: Rehab Principal Diagnosis: Sepsis,UTI Secondary Diagnoses/Problems: Urosepsis, Low Vit D, Hypokalemia, supratherapeutic INR, Bipolar Disorder Consultations: Psych Medication Reconciliation New Medications: Potassium Chloride (Klor-Con M20) 20 Meq Tabcr 20 MEQ PO DAILY for 10 Days, TAB Ergocalciferol (Vitamin D) 50,000 Interunit Cap 53778 INTERUNIT PO WK, #12 CAP Metoprolol Succinate (Metoprolol Succinate ER) 50 Mg Tabcr 50 MG PO BID17 for 60 Days Warfarin Sod (Coumadin) 2 Mg Tab 2 MG PO DAILY@16 for 30 Days, TAB [Boost Nutritional Drink] () 1 BOX LIQD 1 BOX PO BIDM Changed Medications: Furosemide (Furosemide) 40 Mg Tab 20 MG PO UD, #30 (Changed from: 40 MG; QAM) every other day Lisinopril (Lisinopril) 5 Mg Tab 2.5 MG PO QPM for 30 Days, #30 (Changed from: 5 MG) Continued Medications: Digoxin (Digitek) 0.125 Mg Tab 0.125 MG PO QAM for 30 Days, #30 (This prescription has been renewed) Docusate Sodium (Docusate Sodium) 100 Mg Cap 100 MG PO BID PRN for Constipation Lamotrigine (Lamictal) 100 Mg Tab 100 MG PO BID, TAB Venlafaxine Hcl (Effexor Xr) 37.5 Mg Cap 1 CAP PO DAILY for 30 Days, #30 CAP 0 Refills (This prescription has been renewed) Discontinued Medications: Melatonin (Ra Melatonin) 5 Mg Tab 5 MG PO HS, #30 Methylphenidate (Ritalin) 10 Mg Tab 10 MG PO DAILY Metoprolol Succinate (Metoprolol Succinate ER) 100 Mg Tabcr 100 MG PO QAM, #30 Mirtazapine (Remeron) 45 Mg Tab 45 MG PO HS Warfarin Sod (Jantoven) 2.5 Mg Tab 2.5 MG PO QMON, TAB Warfarin Sodium (Warfarin Sodium) 2.5 Mg Tab 1.25 MG PO 6XWK, #30 TAKE ALL DAYS EXCEPT MON TAKE 2.5MG Admission Information HPI (per Admitting provider): Patient is a 66 yo female who presents to the hospital for complaints of dehydration and weakness. The patient was brought in by her daughter who has been routinely checking in on the patient and was concerned about the patients low BP and poor oral intake and appearance. The patient reports malaise, weakness, and chills/body aches that have been ongoing for weeks, however she reports the symptoms have worsened over the last 1 week. Her oral intake of liquids and food has been minimal. She reports that she has continued to take her regular home medications despite not eating or drinking well. She denies any vomiting or diarrhea. She complains of having a dry mouth and dry throat. She denies any cough, nasal congestion, JOYCE, CP or SOB. She does report dizziness made worse with sitting up or standing. She denies any urinary symptoms and states she has been urinating without difficulty. She was last seen by her PCP in mid-August for a follow up but did miss/ cancel her September appointment. She had a complicated admission in May that resulted in transfer from the ICU at [facility] to [facility] for Cardiogenic shock in the presence of possible infection. She underwent a cardiac cath at that time that showed small caliber but normal coronary arteries; and also underwent an iliac stent placement, femoral endarterectomy, and pericardial patch angioplasty after complication from an intraaortic balloon pump. Physical Exam (per Admitting): General Appearance: + mild distress, + thin Head: normocephalic, atraumatic Eyes: PERRL, EOMI, sclerae normal ENT: hearing grossly normal, + pertinent finding (dry oral and buccal mucosa ) Neck: supple, no JVD, no carotid bruits, trachea midline Respiratory/Chest: chest non-tender, lungs clear, no respiratory distress, no accessory muscle use, + decreased breath sounds Cardiovascular: regular rate, rhythm, no edema, no gallop, no JVD, + systolic murmur Abdomen/GI: normal bowel sounds, non tender, soft, no organomegaly Back: normal inspection, no CVA tenderness Extremities/Musculoskelatal: no calf tenderness, normal capillary refill, no pedal edema Neurologic/Psych: no motor/sensory deficits, alert, normal mood/affect, oriented x 3 Skin: normal color, warm/dry, no rash Hospital Course POSSIBLE SEPSIS:Increase WCC Tachycardia and Hypotension Secondary to UTI-E Cloi ,pansensitive Blood cultures pending, 1/2 bottles growing gram neg bacilli Lactic acid was 1.9 Started on Aztreonam and Vancomycin Repeat Blood culture-pending D/C Aztreonam and start Ceftriaxone Continue Vancomycin for now D/C vancomycin-repeat Blood culture negative No more fever and no other signs of infection Completed the course of ceftriaxone Afebrile, No WBC resolved Hypokalemia Potassium replaced will continue monitor BMP will start on potassium supplement Diarrhea Stools for Cdiff negative improved Hx of ANOREXIA NERVOSA Poor Nutrition Nutrition consult-appreciate input She has been trying to eat as advised encourage pt to eat Tolerated diet HYPOTENSION: -Possible related to dehydration -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 -Last SHAVON in 05/2016 showed EF<20% with diffuse hypokinesis, severe MR, severe TR , moderate pulm HTN -was on BB, digoxin, lisinopril and Lasix; all these medications held at this time due to hypotension -Cardiomyopathy is due to malnutrition and gets better with nutritional support -Cardiology consult -appreciate Input -BB dose have been increased and Digoxin added -No acute issue - Stable COPD: -no symptoms to suggest exacerbation -prior hx of tobacco use -no home inhalers -has minimal wheezing -CXR-Emphysema ,no CHF - Continue oxygen supplement prn -Stable PRIOR DVT: -was on Coumadin, dose increased at end of August -INR is 8.0< thus vitamin K given and Coumadin held; can resume Coumadin now that INR is 1 -was starting on Coumadin and Heparin -D/C Heparin -INR 2 today - will dose coumadin Disposition Will discharge today to [facility] for rehab Continue PT/OT Total time spent on discharge = 35 minutes This includes examination of the patient, discharge planning, medication reconciliation, and communication with other providers. Discharge Instructions Discharge Instructions Admission Reason for Admission: Sepsis,Uti(Urinary Tract Infection) Discharge Discharge Diagnosis / Problem: Urosepsis, Low Vit D, Hypokalemia, supratherapeutic INR, Bipolar Disorder Discharge Goals Goal(s): Decrease discomfort, Improve function, Improve disease control Activity Recommendations Activity Limitations: resume your previous activity (as tolerated) . Instructions / Follow-Up Instructions / Follow-Up Patient will be discharge to [facility] Follow up with your primary care provider upon discharge from rehab Follow up with your psychiatrist upon discharge from rehab Continue Physical therapy/OT eval fall precaution Monitor PT/INR closely INR today 2 (10/13/16), can be check on Sunday. discharge on Coumadin 2 mg daily Monitor BMP for hypokalemia and renal function Current Hospital Diet Patient's current hospital diet: Low Fiber Diet, Low Lactose Diet Discharge Diet Recommended Diet: AHA Diet (Heart Healthy) Pending Studies Studies pending at discharge: no Medical Emergencies . Who to Call and When: Additional Copies To [place] John E., III, M.D.
== END 2016-10-14 09:00 | DRG 872 ==
LOC: ENRESERVDT → ENRESERVTM → EDBD 15:14 → C.EDB 15:15 → C.2T 18:28 → C.MS4W 10-12 23:22
PROVIDERS: ADMIT Internal Medicine; ATTEND Internal Medicine
DX: A41.9 Sepsis, unspecified organism (principal); R65.20 Severe sepsis without septic shock; I42.9 Cardiomyopathy, unspecified; N17.9 Acute kidney failure, unspecified; N39.0 Urinary tract infection, site not specified; I50.20 Unspecified systolic (congestive) heart failure; E46 Unspecified protein-calorie malnutrition; B96.20 Unspecified Escherichia coli [E. coli] as the cause of diseases classified elsewhere; F43.21 Adjustment disorder with depressed mood; J44.9 Chronic obstructive pulmonary disease, unspecified; F43.10 Post-traumatic stress disorder, unspecified; E87.6 Hypokalemia; I95.9 Hypotension, unspecified; I12.9 Hypertensive chronic kidney disease with stage 1 through stage 4 chronic kidney disease, or unspecified chronic kidney disease; N18.3 Chronic kidney disease, stage 3 (moderate); F31.9 Bipolar disorder, unspecified; E86.0 Dehydration; Z87.891 Personal history of nicotine dependence; Z79.899 Other long term (current) drug therapy; Z79.01 Long term (current) use of anticoagulants

== ENCOUNTER → 2016-10-16 | Outpatient (CLI) | payer OTHER ==
[~2016-10-16] MED LIST changes: +Boost Nutritional Drink PO; +CMD2 PO; +DOCU100C31 PO; +MCRK20 PO; -METH10TA4 PO; -MIRT45TA PO; -OLAN1TAB13 PO; -TPRSR/100 PO; +TPRSR50 PO; +VTMD PO; -WARF-280 PO
[2016-10-16 08:45] LABS: INR 1.7 (0.9-1.1); PROTHROMBIN TIME (PATIENT) 18.7 SECONDS (9.0-12.0)
[2016-10-16 08:47] LABS: BLOOD UREA NITROGEN 5 mg/dl (7-18); BUN/CREATININE RATIO 6.8 (10-20); CALCIUM 9.4 mg/dl (8.5-10.1); CARBON DIOXIDE 29 mmol/L (21-32); CHLORIDE 103 mmol/L (98-107); CREATININE 0.66 mg/dl (0.60-1.20); GLUCOSE 78 mg/dl (70-99); POTASSIUM 4.4 mmol/L (3.5-5.1); SODIUM 142 mmol/L (136-145)
== END ==
LOC: C.LABCC 08:12
PROVIDERS: ATTEND Internal Medicine
DX: I42.9 Cardiomyopathy, unspecified (principal); N18.9 Chronic kidney disease, unspecified